=== PATIENT | female | born 1965 | race Caucasian/White ===

== ENCOUNTER 2019-01-26 14:06 | Outpatient (CLI) | payer BC, SELFPAY ==
--- NOTE | 2019-01-26 15:00 | DI.RAD_ITS ---
SYMPTOMS/DIAGNOSIS: LEFT SHOULDER PAIN, NUMBNESS, TINGLING X 3 DAYS, SHOULDER WAS FROZEN FOR ABOUT 5 HOURS ON INITIAL ONSET LEFT SHOULDER: Multiple views. There are mild degenerative changes at the acromioclavicular joint. The glenohumeral joint is well maintained. The bones are intact and normally mineralized. The soft tissues are unremarkable. IMPRESSION: Mild degenerative changes of the left shoulder.
== END 2019-01-26 14:26 ==
DX: M25.512 Pain in left shoulder (principal); R20.0 Anesthesia of skin; R20.2 Paresthesia of skin; M19.012 Primary osteoarthritis, left shoulder
CPT/HCPCS: 73030

== ENCOUNTER 2020-04-13 01:22 | Outpatient (CLI) | payer BC, SELFPAY ==
[2020-04-13 12:54] LABS: ALT 51 U/L (14-59); AST 29 U/L (15-37); Albumin 3.3 g/dL (3.4-5.0); Alkaline Phosphatase 76 U/L (46-116); Anion Gap 11.1 mmol/L (3-11); BUN 16 mg/dL (7-18); Bilirubin, Total 0.5 mg/dL (0.2-1.0); CO2 24.9 mmol/L (21.0-32.0); CREATININE 0.94 mg/dL (0.55-1.02); Calcium 9.2 mg/dL (8.5-10.1); Calculated LDL 97 mg/dL (<100); Chloride 102 mmol/L (98-107); Cholesterol 151 mg/dL (<200); Glucose 103 mg/dL (74-106); HDL Cholesterol 29 mg/dL (40-60); Sodium 138 mmol/L (136-145); TSH (W/Ref FT4) 2.73 uIU/mL (0.36-3.74); Total Protein 7.2 g/dL (6.4-8.2); Triglyceride 126 mg/dL (<150)
[2020-04-16 06:13] LABS: Vitamin D 25 Total 18.5 ng/ml (30-100)
== END 2020-04-13 01:42 ==
DX: E03.9 Hypothyroidism, unspecified (principal); R60.0 Localized edema; Z00.00 Encounter for general adult medical examination without abnormal findings; G47.00 Insomnia, unspecified
CPT/HCPCS: 36415; 80053; 80061; 82306; 84443

== ENCOUNTER 2020-06-25 09:30 | Outpatient (REF) | payer BC, SELFPAY ==
--- NOTE | 2020-06-25 08:00 | PAPFT_PTH ---
PATIENT: Emily Hall LOC: [facility] U#:[id number] AGE/SX: 54/F ROOM: RE06/25/[address]: Tammy Helton APRN : 1965 BED: DIS: 06/25/2020 SPEC #: [id number] RECD: 06/25/20 13:08 STATUS: NAVDEEP REQ #: [id number] POPPY: 06/25/20 08:[address]: Tammy Helton DEPT: [facility] Cytology RECD BY: Camryn Bonilla Tissues: 1 - CX/ENDOCX FOR PAP SMEARS Procedures: PAP THIN PREP/UVM Screening HPV DNA PROBE Comments: [id number]
== END 2020-06-25 09:50 ==
LOC: LBN 09:30
DX: Z12.4 Encounter for screening for malignant neoplasm of cervix (principal); R87.810 Cervical high risk human papillomavirus (HPV) DNA test positive
CPT/HCPCS: 88142; 87624

== ENCOUNTER 2020-07-13 03:18 | Outpatient (CLI) | payer BC, SELFPAY ==
--- NOTE | 2020-07-13 07:00 | DI.MAMMO_ITS ---
EXAM: MAMMO SCREENING CLINICAL HISTORY: screening,Z12.39 TECHNIQUE: Mammograms were interpreted according to the usual protocol including computer analysis w [employer] CAD system, tomosynthesis and C-view imaging. COMPARISON: 2014 FINDINGS: The breasts are composed of mainly fatty density , Breast Density category A. No suspicious masses or suspicious microcalcifications are seen. No skin thickening or abnormal axillary lymph nodes are seen. There has been no significant change from prior exams. IMPRESSION: BI-RADS Category 1, Negative mammogram Yearly screening mammography is recommended. Breast Density - Category A, fatty density. A negative radiographic report should not delay biopsy if a dominant or clinically suspicious mass is present. Up to ten percent of cancers are not identified on mammography. A negative report may reinforce clinical impression. Adenosis and dense breasts may obscure an underlying neoplasm. False positive reports average 6 to 10%. Patient will receive a letter notifying them of these results.
== END 2020-07-13 03:38 ==
DX: Z12.31 Encounter for screening mammogram for malignant neoplasm of breast (principal)
CPT/HCPCS: 77063; 77067

== ENCOUNTER 2021-08-05 01:40 | Outpatient (CLI) | payer BC, SELFPAY ==
--- NOTE | 2021-08-05 07:15 | DI.US_ITS ---
Exam(s) US RENAL EXAM: US RENAL CLINICAL HISTORY: left flank pain, r/o calculi,R10.9 TECHNIQUE: Ultrasound of both kidneys performed using standard protocol. COMPARISON: No exams were available for comparison FINDINGS: RIGHT KIDNEY: Measures 11.7 cm in length. No cysts evident. Normal cortical thickness and corticomedullary differen tiation .No solid masses No intrarenal calculi nor hydronephrosis. LEFT KIDNEY: Measures 11.3 cm in length. No cysts evident. Normal cortical thickness and corticomedullary differe ntiaion. No solids masses. No intrarenal calculi nor hydonephrosis. URINARY BLADDER: Prevoid volume is 48 cc Postvoid volume is patient apparently did not feel need to void No evidence of bladder mass nor diverticuli. Ureterovesical jets: Both identified and appear symmetrical IMPRESSION: 1. No significant ultrasound findings in the kidneys. 2. No obvious abnormality in the visualized urinary bladder which was not very full, containing only 48 cc. DATA REPOSITORY:
--- NOTE | 2021-08-05 07:15 | DI.MAMMO_ITS ---
Exam(s) MAMMO SCREENING EXAM: MAMMO SCREENING CLINICAL HISTORY: screening,Z12.39. TECHNIQUE: Bilateral full field digital CC and MLO mammographic images were obtained with 3D tomosyn thesis and utilizing computer aided detection (CAD). COMPARISON: Prior mammograms dating back to 2014, the most recent being June 2020. FINDINGS: There are no new significant radiograph findings in left breast. In the right breast there is well-defined noncalcified nodule measuring 7 by 6 millimeters and is loc ated 8 cm in from the nipple, slightly medial of center. This is unchanged from prior studies. There are no new spiculated masses nor malignant appearing microcalcification groups. There is no significant architectural distortion nor skin thickening-retraction. IMPRESSION: No radiographic evidence of malignancy. Stable benign findings. BI-RADS Category 2 - Benign Findings Breast Density - Category B - Scattered areas of fibroglandular density Breast density Category C or D implies that the patient has dense breast tissue. Dense breast tissue can make it harder to find cancer on a mammogram. Dense breast tissue is also associated with an incr eased risk of breast cancer. This information about the result of the mammogram report was provided to the patient to raise their awareness. Use this report when you speak with the patient about their risks for breast cancer, which includes their family history. At that time, you may recommend additional screening tests (Ultrasoun d or MRI) as these tests may add significant information. A negative radiographic report should not delay biopsy if a dominant or clinically suspicious mass is present. Up to ten percent of cancers are not identified on mammography. A negative report may reinforce clinical impression. Adenosis and dense breasts may obscure an underlying neoplasm. False positive reports average 6 to 10%. Patient will receive a letter notifying them of these results.
== END 2021-08-05 02:00 ==
DX: Z12.31 Encounter for screening mammogram for malignant neoplasm of breast (principal); R10.32 Left lower quadrant pain
CPT/HCPCS: 76770; 77063; 77067

== ENCOUNTER 2021-08-06 15:58 | Outpatient (REF) | payer BC, SELFPAY ==
--- NOTE | 2021-08-06 14:50 | PAPFT_PTH ---
PATIENT: Emily Hall LOC: [facility] U#:[id number] AGE/SX: 56/F ROOM: RE08/06/[address]: Kerry Mcrae DO : 1965 BED: DIS: 08/06/2021 SPEC #: [id number] RECD: 08/06/21 18:29 STATUS: NAVDEEP REQ #: [id number] POPPY: 08/06/21 14:[address]: Kerry Mcrae DEPT: [facility] Cytology RECD BY: Camryn Bonilla ENTERED: 08/06/21 18:29 SP TYPE: PAPFT OTHR DR: Tammy Helton APRN Tissues: 1 - CX/ENDOCX FOR PAP SMEARS Procedures: PAP THIN PREP/UVM Screening HPV DNA PROBE Comments: [id number] (HPV 16 & 18/45)
== END 2021-08-06 15:59 | disposition home or self-care (01) ==
LOC: LBN 15:58
PROVIDERS: Visit Provider Obstetrics & Gynecology
DX: Z12.4 Encounter for screening for malignant neoplasm of cervix (principal); Z11.51 Encounter for screening for human papillomavirus (HPV); R87.810 Cervical high risk human papillomavirus (HPV) DNA test positive
CPT/HCPCS: 88142; 87624

== ENCOUNTER 2021-09-19 14:49 | Outpatient (REF) | payer BC, SELFPAY ==
--- NOTE | 2021-09-19 14:25 | ENDO_PTH ---
PATIENT: Emily Hall LOC: N U#:[id number] AGE/SX: 56/F ROOM: RE09/19/[address]: Kerry Mcrae DO : 1965 BED: DIS: 09/19/2021 SPEC #: [id number] RECD: 09/19/21 17:04 STATUS: NAVDEEP REQ #: [id number] POPPY: 09/19/21 14:[address]: Kerry Mcrae DEPT: Surgical Specimen RECD BY: Camryn Bonilla ENTERED: 09/19/21 17:05 SP TYPE: Endo OTHR DR: Tammy Helton APRN Tissues: 1 - ENDOCERVICAL BX/CURRETTE Procedures: GROSS AND MICRO LEVEL 4 Comments: [id number]
== END 2021-09-19 14:50 | disposition home or self-care (01) ==
LOC: LBN 14:49
PROVIDERS: Visit Provider Obstetrics & Gynecology
DX: R87.810 Cervical high risk human papillomavirus (HPV) DNA test positive (principal)
CPT/HCPCS: 88305

== ENCOUNTER 2022-01-10 02:00 | Outpatient (CLI) | payer BC, SELFPAY ==
[2022-01-10 08:21] LABS: ALT 51 U/L (14-59); AST 31 U/L (15-37); Albumin 3.5 g/dL (3.4-5.0); Alkaline Phosphatase 94 U/L (46-116); Anion Gap 3.7 mmol/L (3-11); BUN 13 mg/dL (7-18); Bilirubin, Total 0.6 mg/dL (0.2-1.0); CO2 29.3 mmol/L (21.0-32.0); Calcium 8.7 mg/dL (8.5-10.1); Chloride 103 mmol/L (98-107); Estimated GFR 57.15 (mL/min/1.73m2); Glucose 143 mg/dL (74-106); Potassium 4.3 mmol/L (3.5-5.1); Sodium 136 mmol/L (136-145); Total Protein 7.4 g/dL (6.4-8.2)
== END 2022-01-10 02:01 | disposition home or self-care (01) ==
LOC: LBO 02:00
DX: E55.9 Vitamin D deficiency, unspecified (principal); R63.0 Anorexia; R03.0 Elevated blood-pressure reading, without diagnosis of hypertension
CPT/HCPCS: 36415; 80053; 82306

== ENCOUNTER 2022-07-15 10:46 | Emergency (ER) | payer OTHER, SELFPAY ==
[2022-07-15 10:48] VITALS: BP 125/71; PULSE 93; RESP 18; TEMP 36.8; O2SAT 93
--- NOTE | 2022-07-15 11:15 | DI.RAD_ITS ---
Exam(s) XR ANKLE RT COMPLETE EXAM: XR ANKLE RT COMPLETE CLINICAL HISTORY: twisted ankle while walking, r/o fx. TECHNIQUE: 2D digital imaging was performed. COMPARISON: No exams were available for comparison FINDINGS: 3 views There is prominent soft tissue swelling laterally but no evidence of fracture or widening of the ankl e mortise. Talar dome unremarkable. No obvious degenerative changes. Small inferior calcaneal spur noted. IMPRESSION: No fracture evident. Prominent soft tissue swelling laterally. DATA REPOSITORY: RADIATION DOSE DELIVERED:
--- NOTE | 2022-07-15 11:15 | DI.RAD_ITS ---
Exam(s) XR FOOT RT COMPLETE EXAM: XR FOOT RT COMPLETE CLINICAL HISTORY: twisted R ankle, pain dorsolateral foot, r/o fx. TECHNIQUE: 2D digital imaging was performed. COMPARISON: CR RIGHT FOOT COMPLETE from 01/20/2018 FINDINGS: 3 views No evidence of acute fracture or diastasis of the Lisfranc joint. Bipartite medial sesamoid subjacen t to the great toe metatarsal head noted, unchanged. There are degenerative changes at the articulations between the bases of the 2nd 3rd metatarsals and the acute informs. Metatarsophalangeal joint of the great toe appears relatively unremarkable. Acce ssory ossicle on the medial aspect foot noted adjacent to the navicular tuberosity, unchanged. IMPRESSION: Degenerative changes at the tarsometatarsal joints. No widening of the Lisfranc joint. DATA REPOSITORY: RADIATION DOSE DELIVERED:
--- NOTE | 2022-07-15 11:51 | ED.GENADUL_ITS ---
Discharge Plan Disposition Patient Disposition: HOME Condition: Stable Discharge Details Clinical Impression: Right ankle strain Primary Care Provider: Tammy Helton ED Provider: Jailyn Hodge Home Meds and New Rx's Prescriptions: Continued sertraline 50 mg tablet 50 mg PO DAILY Qty: 90 0RF naproxen sodium 220 MG tablet 2 tab PO DAILY PRN Label Comments: hydrochlorothiazide 25 mg tablet 25 mg PO QAM Qty: 90 3RF cholecalciferol (vitamin D3) 125 mcg (5,000 unit) capsule 125 mcg PO DAILY Qty: 90 4RF alprazolam 0.25 mg tablet See Rx Instructions PO TID PRN (Reason: anxiety) Qty: 90 0RF Rx Instructions: 1 to 2 tabs orally three times a day PRN; Centrum Silver Women 1 EACH tablet 1 ea PO DAILY Discharge Instructions Instructions: Ankle Sprain (ED) Additional Instructions: Your x-ray today showed arthritis but no evidence of acute fracture or dislocation. Rest, ice, and elevate the affected area as much as possible. Alternate tylenol and motrin as needed and directed for pain. Follow-up with your primary care doctor in 1 week. Return to the emergency department with any worsening or new concerning symptoms. Referrals: Yaron Jarrett MD [ [facility] STAFF PHYSICIAN] - Discharge Data Discharge Physician: Jailyn Hodge Medical Decision Making 57-year-old female presents with right ankle pain and swelling after twisting her ankle while walking this morning. She has moderate edema and tenderness palpation to right lateral malleolus. There is no obvious deformity. She is neurovascularly intact. Patient referred for x-rays of right foot and ankle which no degenerative changes but no obvious fracture or dislocation. Will order ankle stirrup splint and crutches. Advised on the importance of RICE, alternating Tylenol and Motrin. Given orthopedic follow-up information if needed. Advised to follow up with the primary care doctor for re-evaluation. Usual and customary return precautions given prior to discharge. Medical Records Medical records reviewed: Yes I reviewed the patient's medical records. Imaging Data Radiologic Study: Radiologist's impression: XR FOOT RT COMPLETE CLINICAL HISTORY: ? twisted R ankle, pain dorsolateral foot, r/o fx. ? TECHNIQUE:? 2D digital imaging was performed. COMPARISON:? CR RIGHT FOOT COMPLETE from 01/20/2018 FINDINGS: 3 views No evidence of acute fracture or diastasis of the Lisfranc joint.? Bipartite medial sesamoid subjacent to the great toe metatarsal head noted, unchanged. There are degenerative changes at the articulations between the bases of the 2nd 3rd metatarsals and the acute informs.? Metatarsophalangeal joint of the great toe appears relatively unremarkable.? Accessory ossicle on the medial aspect foot noted adjacent to the navicular tuberosity, unchanged. IMPRESSION: Degenerative changes at the tarsometatarsal joints.? No widening of the Lisfranc joint. XR ANKLE RT COMPLETE CLINICAL HISTORY: ? twisted ankle while walking, r/o fx. ? TECHNIQUE:? 2D digital imaging was performed. COMPARISON:? No exams were available for comparison FINDINGS: 3 views There is prominent soft tissue swelling laterally but no evidence of fracture or widening of the ankle mortise.? Talar dome unremarkable.? No obvious degenerative changes.? Small inferior calcaneal spur noted. IMPRESSION: No fracture evident.? Prominent soft tissue swelling laterally. HPI General Mode of arrival: ambulatory . Date/Time Provider Initiated Documentation: 07/15/22 10:58 . Limitations to Documentation: no limitations . Information obtained by: patient . HPI Narrative: Patient is a 57-year-old female who presents with right ankle pain after twisting her ankle while walking and fell into a divot in the ground this morning. She has not taken any medication for pain. She denies any injury to her right knee or right proximal leg. Related Data Home Medications Medication Instructions Recorded Confirmed naproxen sodium 220 mg tablet 2 tab PO DAILY PRN 11/15/14 06/11/22 multivit with 1 ea PO DAILY 02/04/16 07/15/22 qacvegpj-giqz-AB-lutein 8 mg iron-400 mcg-300 mcg tablet (Centrum Silver Women) hydrochlorothiazide 25 mg tablet 25 mg PO QAM #90 tabs 06/11/21 07/15/22 cholecalciferol (vitamin D3) 125 125 mcg PO DAILY #90 caps 01/13/22 07/15/22 mcg (5,000 unit) capsule sertraline 50 mg tablet 50 mg PO DAILY #90 tabs 05/05/22 07/15/22 alprazolam 0.25 mg tablet See Rx Instructions PO TID PRN 05/08/22 07/15/22 anxiety #90 tabs Previous Rx's Medication Instructions Recorded hydrochlorothiazide 25 mg tablet 25 mg PO QAM #90 tabs 06/11/21 cholecalciferol (vitamin D3) 125 125 mcg PO DAILY #90 caps 01/13/22 mcg (5,000 unit) capsule sertraline 50 mg tablet 50 mg PO DAILY #90 tabs 05/05/22 alprazolam 0.25 mg tablet See Rx Instructions PO TID PRN 05/08/22 anxiety #90 tabs Allergies Allergy/AdvReac Type Severity Reaction Status Date / Time [facility] Allergy Intermediate Hives, Verified 07/15/22 10:53 Itchy/Runny eyes Animal Dander Allergy Uncoded 07/15/22 10:53 General Stated Complaint: Orthopedic NARINDER: 3 Review of Systems All systems reviewed & are unremarkable except as noted in HPI and below Constitutional Constitutional: Reports as per HPI, Denies chills and Denies fever(s) Eyes Eyes: Denies blurry vision ENT Ears, Nose, Mouth, and Throat: Denies dizziness, Denies sore throat and Denies throat swelling Cardiovascular Cardiovascular: Denies chest pain and Denies dyspnea Respiratory Respiratory: Denies cough and Denies dyspnea Gastrointestinal Gastrointestinal: Denies abdominal pain, Denies diarrhea and Denies vomiting Genitourinary Genitourinary: Denies hematuria and Denies dysuria Musculoskeletal Musculoskeletal: Denies back pain and Denies numbness Comments: R ankle pain Integumentary/Breasts Skin/Breast: Denies lesions and Denies rash Neurologic Neurologic: Denies dizziness, Denies localized weakness and Denies numbness Allergic/Immunologic Allergic/Immunologic: Denies throat swelling PFSH All Active Problems (Updated 07/15/22 @ 12:31 by Jailyn Hodge DO) Right ankle strain (Acute) Anxiety (Chronic) Essential hypertension (Acute) Morbid obesity with BMI of 45.0-49.9, adult (Acute) Low back pain (Chronic) HPV (human papilloma virus) infection (Chronic) HPV + 2019 & again 2020 (PAP Neg). Colposcopy Dr. Mcrae early 2021. Vitamin D deficiency (Acute) Smoker (Chronic) Left shoulder pain (Chronic) Colon cancer screening (Acute) Medical History (Updated 07/15/22 @ 12:31 by Jailyn Hodge DO) COVID-19 07/2021, uri-resolved Fluid retention in legs Left flank pain Plantar fasciitis, right (01/20/18) Posterior tibial tendinitis, right leg (01/20/18) Surgical History Abdominal hysterectomy KATIE; B/L OOPHORECTOMY 1992 Cervix remains intact Cholecystectomy (~1992) , Ectopic (~1987) Family History Mother Diabetes Personal history of malignant neoplasm BREAST Thyroid disease Grandfather Essential hypertension Heart disease Grandmother Diabetes Personal history of malignant neoplasm BREAST MATERNAL FAMILY HX CAD (coronary artery disease) Social History Smoking/Tobacco Use Status: Current every day Tobacco Type: cigarettes Tobacco: How many years used: 40 Quit status: considering quitting Second Hand Exposure: Yes Smoking risk assessment performed?: Yes Alcohol Intake: current Alcohol Intake frequency: holidays/special occasions only Drug use: Never Substance use type: does not use Caregiver/Support person: No Household members: spouse Housing: house Communication Needs: None Do you need help understanding health information?: Never Pets and animals: Yes Pets and animals: dog(s) Sexually active: Yes Do you think of yourself as: straight/heterosexual Current gender identity: female What is your relationship status?: How often do you talk on the phone with friends or family?: three or more times per week How often do you get together with friends or relatives?: once per week How often do you attend hoahaoism or lutheran services?: decline to answer Do you belong to any clubs or organized social groups?: no Panel score (0-1 are the most socially isolated patients): 2 What type of physical activity do you participate in: walking Duration: 30-45 minutes/day Frequency: 5-6 times per week Laly/Religious: Caodaism Special laly needs: No Seatbelt use: always Helmet use: Yes Helmet use: always Drive intox or ride w/intox 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 Do you feel safe at home: Yes Do you feel safe in your relationship?: Yes Exam Const General: cooperative and no acute distress Orientation: alert, awake and oriented x3 HENMT Head: normal to inspection Mouth: oral mucosae normal Eyes General: appearance normal, both eyes and all related structures Neck Neck: normal visual inspection Resp Effort & Inspection: normal respiratory effort and able to speak in complete sentences Cardio Rate: regular rate Skin General skin exam: no rashes or lesions noted Neuro General: patient alert, patient awake and patient oriented x3 Motor: muscle tone normal throughout Extrem Ankle/foot/toe images: 1. Moderate edema and tenderness to palpation overlying Right lateral malleolus. There is also tenderness to palpation overlying right dorsal lateral foot. There is mild tenderness to palpation right medial malleolus. There is no tenderness palpation to right proximal leg. There is no obvious deformity. Right DP/PT pulses intact. Psych Appearance: grossly normal Affect: normal affect Course Vital Signs Vital signs: Vital Signs Temperature 98.2 F 07/15/22 10:48 Pulse 93 H 07/15/22 10:48 Respiratory Rate 18 07/15/22 10:48 Blood Pressure 125/71 07/15/22 10:48 Pulse Oximetry 93 07/15/22 10:48 Temperature 98.2 F 07/15/22 10:48 Pulse 93 H 07/15/22 10:48 Respiratory Rate 18 07/15/22 10:48 Respiratory Effort Non-Labored 07/15/22 10:55 Blood Pressure 125/71 07/15/22 10:48 Blood Pressure Position Sitting 07/15/22 10:48 Pulse Oximetry 93 07/15/22 10:48 Oxygen Delivery Method Room Air 07/15/22 10:48 Oxygen Flow Rate 0 07/15/22 10:48 Pain Level 6 07/15/22 10:48 PAWSS Have you Been Recently Intoxicated or Drunk Within the Last 30 days?: Yes Have you Ever Experienced Previous Episodes of Alcohol Withdrawal?: No Have you ever Experienced Withdrawal Seizures?: No Have you ever Experienced Delirium Tremens(DT)s?: No Have you ever undergone Alcohol Rehabilitation Treatment (i.e, inpt ot outpatient treatment programs)?: No Have you ever Experienced Blackouts?: No Have you ever Combined Alcohol with other Downers within the last 90 days?: No Have you ever Combined Alcohol with any other Substance of Abuse during the last 90 days?: No Result: 1
[2022-07-15] MEDS: Ibuprofen 600 MG TAB PO (12:10)
== END 2022-07-15 13:05 | disposition home or self-care (01) ==
PROVIDERS: Emergency Provider Physician Assistant
DX: S96.911A Strain of unspecified muscle and tendon at ankle and foot level, right foot, initial encounter (principal); X50.1XXA Overexertion from prolonged static or awkward postures, initial encounter; W18.30XA Fall on same level, unspecified, initial encounter; Y93.01 Activity, walking, marching and hiking
CPT/HCPCS: 99284; 73610; 73630; 99282

== ENCOUNTER 2022-07-23 09:15 | Outpatient (CLI) | payer OTHER, SELFPAY ==
--- NOTE | 2022-07-23 09:00 | DI.RAD_ITS ---
Exam(s) XR FOOT RT COMPLETE EXAM: XR FOOT RT COMPLETE CLINICAL HISTORY: right lateral foot pain. TECHNIQUE: 2D digital imaging was performed. Three views. COMPARISON: CR XR FOOT RT COMPLETE from 07/15/2022 FINDINGS: BONES: No acute fracture is present. No bony destructive lesion is seen. Small heel spur. JOINTS: No dislocation present. Degenerative changes mid tarsal region. SOFT TISSUE: No dorsal soft tissue swelling. IMPRESSION: No acute bony abnormality. DATA REPOSITORY: RADIATION DOSE DELIVERED:
--- NOTE | 2022-07-23 09:00 | DI.RAD_ITS ---
Exam(s) XR ANKLE RT COMPLETE EXAM: XR ANKLE RT COMPLETE CLINICAL HISTORY: right lateral ankle pain. TECHNIQUE: 2D digital imaging was performed. Three views. COMPARISON: CR XR ANKLE RT COMPLETE from 07/15/2022 FINDINGS: BONES: No acute fracture is present. No bony destructive lesion is seen. Small heel spur. JOINTS: The ankle mortise is normally aligned. SOFT TISSUE: Normal marked soft tissue swelling greatest around lateral malleolus. IMPRESSION: Soft tissue swelling. DATA REPOSITORY: RADIATION DOSE DELIVERED:
== END 2022-07-23 09:16 | disposition home or self-care (01) ==
LOC: DIORS 09:16
PROVIDERS: PCP Nurse Practitioner Family; Referring Provider Family Medicine; Visit Provider Physician Assistant
DX: M79.671 Pain in right foot (principal); R22.41 Localized swelling, mass and lump, right lower limb
CPT/HCPCS: 73610; 73630

== ENCOUNTER 2022-09-04 14:10 | Outpatient (REF) | payer OTHER, SELFPAY ==
--- NOTE | 2022-09-04 13:40 | PAPFT_PTH ---
PATIENT: Emily Hall LOC: [facility] U#:[id number] AGE/SX: 57/F ROOM: RE09/04/[address]: Kerry Mcrae DO : 1965 BED: DIS: 09/04/2022 SPEC #: [id number] RECD: 09/04/22 16:58 STATUS: NAVDEEP REQ #: [id number] POPPY: 09/04/22 13:[address]: Kerry Mcrae DEPT: [facility] Cytology RECD BY: Camryn Bonilla ENTERED: 09/04/22 16:58 SP TYPE: PAPFT OTHR DR: Ministerio Bah DNP Tissues: 1 - CX/ENDOCX FOR PAP SMEARS Procedures: PAP THIN PREP/UVM Screening HPV DNA PROBE Comments: [id number]
== END 2022-09-04 14:11 | disposition home or self-care (01) ==
LOC: LBN 14:10
PROVIDERS: PCP Nurse Practitioner Family; Visit Provider Obstetrics & Gynecology
DX: Z12.4 Encounter for screening for malignant neoplasm of cervix (principal); Z11.51 Encounter for screening for human papillomavirus (HPV); R87.610 Atypical squamous cells of undetermined significance on cytologic smear of cervix (ASC-US)
CPT/HCPCS: 88142; 87624

== ENCOUNTER → 2022-09-09 00:48 | Outpatient (CLI) | payer OTHER, SELFPAY ==
--- NOTE | 2022-09-09 07:30 | DI.MRI_ITS ---
Exam(s) MR LOWER JOINT RT WO EXAM: MR LOWER JOINT RT WO CLINICAL HISTORY: R ANKLE PERONEAL TENDON injury, strain, s86.309a,s96.911a TECHNIQUE: Multiplanar multisequence MRI was performed without intravenous contrast. COMPARISON: No exams were available for comparison FINDINGS: SKIN: No evidence of ulcer nor subcutaneous tract. BONES/JOINTS: There is a small ankle joint-tibiotalar joint effusion. There is bone edema at the mid aspect of the talus above this sinus tarsi. No obvious fracture line evident in the talus on T1 lauren ges. There is bone edema in both malleoli as well as in the lateral aspect of the talar dome. No buckner barticular cyst at this level and no osteochondral defect. The ankle mortise is maintained. There is no evidence of para-articular ganglion.There is no evidence of osseous tarsal coalition. 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 Anterior talofibular ligament exhibits heterogeneous signal consistent with partial tearing. Po sterior talofibular ligament appears intact. Calcaneofibular ligament somewhat heterogeneous. On th e medial aspect of the ankle there is some abnormal signal in the deltoid ligament deep fibers consis tent with element of tearing. Lisfranc ligament: Heterogeneous appearance consistent with partial tearing SINUS TARSI: There is effacement of the normal fat signal in this space. Interosseous ligament is in tact. There is no evidence of sinus tarsi ganglion cyst. MUSCULOTENDINOUS STRUCTURES: Achilles tendon: Focal partial cystic degenerative tearing noted in the anterior inferior aspect just above the insertion site. No full-thickness tear. No chronic thickening. Plantar fascia: Unremarkable. No evidence of tear, abnormal thickening, nor abnormal nodularity. Anterior Extensor tendons: Unremarkable. Medial Tendons: Posterior Tibialis: Unremarkable. No tear or tenosynovitis evident. Flexor Digitorum longus: Unremarkable. No tear or tenosynovitis evident. Flexor Hallicus longus: Unremarkable. No tear or tenosynovitis evident. Lateral Tendons: Peroneus longus: Unremarkable. No tear nor tenosynovitis evident. Peroneus brevis:Unremarkable. No tear nor tenosynovitis evident. SOFT TISSUES: Unremarkable. OTHER FINDINGS: None. IMPRESSION: 1. There is evidence of tearing of the deep fibers of the deltoid ligament as well as partial tearing of the anterior talofibular ligament and sprain signal within the anterior posterior tibiofibular li gaments. There also appears to be probable partial tearing of the main Lisfranc ligament. 2. Cystic-type partial tear of the distal Achilles tendon just above the calcaneus. No full-thicknes s tear of the Achilles evident. 3. There is advanced degenerative change in the tarsometatarsal joints, most prominent at the articul ation between the base of the 2nd metatarsal and the middle cuneiform. 4. Multilevel bone edema also evident in the malleoli, talar dome, and mid aspect of talus. No oste ochondral defects. DATA REPOSITORY:
--- NOTE | 2022-09-09 17:19 | DI.VRAD_ITS ---
PROCEDURE INFORMATION: Exam: MR Right Lower Extremity Joint Without Contrast; Ankle Exam date and time: 09/09/2022 2:03 PM Age: 57 years old Clinical indication: Other: R ankle peroneal tendon injury, strain, TECHNIQUE: Imaging protocol: Magnetic resonance imaging of the Right lower extremity without contrast. Exam focused on the ankle. 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 Reactive edema in the neck of the talus. No fracture line identified. Mild to moderate chondromalacia in the lateral ankle mortise. Mild edema in the medial dome of the talus. Joint spaces: Small tibiotalar joint effusion. LIGAMENTS: Distal tibiofibular syndesmosis: Heterogeneous appearance of the anterior and posterior tibiofibular ligaments consistent with partial tearing. Anterior talofibular ligament: Heterogeneous appearance of the anterior talofibular ligament consistent with partial tearing. Posterior talofibular ligament: Unremarkable. No tear. Calcaneofibular ligament: Unremarkable. No tear. Deltoid ligament complex: Marked heterogeneous appearance of the deep fibers of the deltoid ligament consistent with a complex tearing, likely full-thickness. Lisfranc ligament: Heterogeneous appearance of the Lisfranc ligament consistent with partial tearing. TENDONS: Flexor tendons of foot: Unremarkable as visualized. Tibialis posterior tendon: Unremarkable as visualized. Peroneal tendons: Soft tissue thickening surrounding the peroneal tendons suspicious for complex tenosynovitis. Extensor tendons of foot: Unremarkable as visualized. Tibialis anterior tendon: Unremarkable as visualized. Achilles tendon: Small collection of fluid deep fibers of the distal Achilles tendon lateral to midline best seen axial series 5001, image 23. This suggests focal partial tearing. Tarsal canal (Sinus tarsi): Unremarkable. Normal signal of the fat. Tarsal tunnel: Unremarkable. Muscles: Unremarkable. Soft tissues: Unremarkable. Plantar fascia: Plantar fascia is unremarkable. IMPRESSION: 1. Complex, probable full-thickness tear deep fibers deltoid ligament 2. Partial tearing anterior talofibular ligament and anterior and posterior tibiofibular ligaments 3. Peroneal tenosynovitis 4. Advanced degenerative arthritis in the TMT joints, especially the 2nd TMT joint 5. Probable partial tearing of the Lisfranc ligament 6. Degenerative arthritis in the ankle mortise with mild to moderate chondromalacia medially 6. Slight partial tearing deep fibers of the Achilles tendon Dictated and Authenticated by: Abby Mendiola MD. Ordering:TRACI Coronado MD
== END ==
PROVIDERS: PCP Nurse Practitioner Family; Visit Provider Student in an Organized Health Care Education/Training Program
DX: S86.301A Unspecified injury of muscle(s) and tendon(s) of peroneal muscle group at lower leg level, right leg, initial encounter (principal); S93.421A Sprain of deltoid ligament of right ankle, initial encounter; S93.491A Sprain of other ligament of right ankle, initial encounter; S93.431A Sprain of tibiofibular ligament of right ankle, initial encounter; S86.011A Strain of right Achilles tendon, initial encounter; M19.071 Primary osteoarthritis, right ankle and foot; X58.XXXA Exposure to other specified factors, initial encounter
CPT/HCPCS: 73721

== ENCOUNTER 2022-09-24 02:46 | Outpatient (CLI) | payer OTHER, SELFPAY ==
--- NOTE | 2022-09-24 15:42 | DI.MAMMO_ITS ---
Exam(s) MAMMO SCREENING EXAM: MAMMO SCREENING CLINICAL HISTORY: screening,z12.39 TECHNIQUE: Mammograms were interpreted according to the usual protocol including computer analysis w [address] CAD system, tomosynthesis and C-view imaging. COMPARISON: 2014 through 2020 FINDINGS: The breasts are composed of mainly fatty density , Breast Density category A. No suspicious masses or suspicious microcalcifications are seen. No skin thickening or abnormal axillary lymph nodes are seen. There has been no significant change from prior exams. IMPRESSION: BI-RADS Category 1, Negative mammogram Yearly screening mammography is recommended. Breast Density - Category A, fatty density. A negative radiographic report should not delay biopsy if a dominant or clinically suspicious mass is present. Up to ten percent of cancers are not identified on mammography. A negative report may reinforce clinical impression. Adenosis and dense breasts may obscure an underlying neoplasm. False positive reports average 6 to 10%. Patient will receive a letter notifying them of these results.
== END 2022-09-24 03:06 ==
PROVIDERS: PCP Nurse Practitioner Family; Visit Provider Nurse Practitioner Family
DX: Z12.31 Encounter for screening mammogram for malignant neoplasm of breast (principal)
CPT/HCPCS: 77063; 77067

== ENCOUNTER 2022-09-30 13:09 | Outpatient (REF) | payer OTHER, SELFPAY ==
--- NOTE | 2022-09-30 11:30 | ENDO_PTH ---
PATIENT: Emily Hall LOC: [facility] U#:[id number] AGE/SX: 57/F ROOM: RE09/30/[address]: Kerry Mcrae DO : 1965 BED: DIS: 09/30/2022 SPEC #: [id number] RECD: 09/30/22 13:10 STATUS: NAVDEEP REQ #: [id number] POPPY: 09/30/22 11:[address]: Kerry Mcrae DEPT: Surgical Specimen RECD BY: Camryn Bonilla ENTERED: 09/30/22 13:10 SP TYPE: Endo OTHR DR: Ministerio Bah DNP Tissues: 1 - ENDOCERVICAL BX/CURRETTE Procedures: GROSS AND MICRO LEVEL 4 Comments: [id number]
== END 2022-09-30 13:10 | disposition home or self-care (01) ==
LOC: LBN 13:09
PROVIDERS: PCP Nurse Practitioner Family; Visit Provider Obstetrics & Gynecology
DX: N89.8 Other specified noninflammatory disorders of vagina (principal)
CPT/HCPCS: 88305

== ENCOUNTER 2022-11-06 02:07 | Outpatient (CLI) | payer OTHER, SELFPAY ==
[2022-11-06 13:24] LABS: ALT 24 U/L (14-59); AST 14 U/L (15-37); Albumin 3.5 g/dL (3.4-5.0); Alkaline Phosphatase 94 U/L (46-116); Anion Gap 7.5 mmol/L (3-11); BUN 12 mg/dL (7-18); Bilirubin, Total 0.7 mg/dL (0.2-1.0); CO2 29.5 mmol/L (21.0-32.0); Calcium 9.7 mg/dL (8.5-10.1); Chloride 100 mmol/L (98-107); Glucose 105 mg/dL (74-106); Potassium 3.8 mmol/L (3.5-5.1); Sodium 137 mmol/L (136-145); Total Protein 8.2 g/dL (6.4-8.2)
== END 2022-11-06 02:08 | disposition home or self-care (01) ==
LOC: LBO 02:07
PROVIDERS: PCP Nurse Practitioner Family; Visit Provider Nurse Practitioner Family
DX: Z13.1 Encounter for screening for diabetes mellitus (principal)
CPT/HCPCS: 36415; 80053

== ENCOUNTER 2023-02-18 09:14 | Emergency (ER) | payer OTHER, SELFPAY ==
[2023-02-18 09:29] VITALS: BP 123/74; PULSE 89; RESP 16; TEMP 37.1; O2SAT 96
--- NOTE | 2023-02-18 09:30 | DI.CT_ITS ---
Exam(s) CT ABDOMEN PELVIS W EXAM: CT ABDOMEN PELVIS W CLINICAL HISTORY: left lower quad pain, divertic v kidney stone. TECHNIQUE: Imaging Protocol: Axial computed tomography images with coronal and sagittal reformatted images were created and reviewed CONTRAST MATERIAL: Intravenous: Omnipaque 350 Contrast volume:86 mL Oral: No COMPARISON: No exams were available for comparison FINDINGS: ABDOMEN: Lung Bases: Dependent changes. Liver: Enlarged. Moderate to severe hepatic steatosis. No measurable mass. Gallbladder and biliary tract: Status post cholecystectomy. No biliary dilatation. Pancreas: Normal density, no abnormal calcifications or inflammatory process. Spleen: Cyst. Kidneys: Normal size, contour and axis. No radiodense stones or obstructive uropathy. No suspicious m asses seen. Adrenal glands: No masses seen. Abdominal Aorta: Abdominal portion non-dilated. Soft tissues: Unremarkable. PELVIS: Bladder: Nearly empty. No calculi.No focal mass. Bowel: No obstruction. Diverticulosis with diverticulitis of the mid to lower descending colon. St randing in the surrounding fat but no evidence abscess or perforation. Small amount of fluid in the left paracolic gutter. Appendix normal. Peritoneal cavity: Trace amount of fluid in the lower pelvis. No abscess or free air. Bones: Unremarkable for age. Reproductive organs: Status post hysterectomy. Lymph nodes: Unremarkable. Impression: Diverticulitis of the mid to lower descending colon. No perforation or abscess. Enlarged fatty liver. Findings called to Dr. Fitzpatrick of the emergency department. RADIATION DOSE DELIVERED: 1,506.89mGy.cm Total DLP DATA REPOSITORY: All CT scans at this facility are submitted to the National Radiology Data Registry (NRDR) Dose Index Registry (DIR) with the [employer] (ACR). RADIATION OPTIMIZATION: All CT scans at this facility use at least one of these dose optimization te chniques: automated exposure control; mA and/or kV adjustment per patient size (includes targeted exa ms where dose is matched to clinical indication); or iterative reconstruction.
[2023-02-18 09:41] LABS: Bilirubin Small (Negative); Blood Trace-intact (Negative); Clarity Clear (Clear); Glucose Negative (Negative); Ketones Negative (Negative); Leukocyte Esterase Negative (Negative); Nitrite Negative (Negative); Specific Gravity 1.025 (1.005-1.025); Urobilinogen 0.2 mg/dL (Up to 0.2); pH 5.5 (5-8)
--- NOTE | 2023-02-18 09:44 | W.ED.GENAD ---
Discharge Plan Disposition Patient Disposition: Home Discharge Details Clinical Impression: Diverticulitis Primary Care Provider: Ministerio Gardner ED Provider: Jordan Fitzpatrick Home Meds and New Rx's Prescriptions: New amoxicillin-pot clavulanate 875-125 mg tablet 1 tab PO BID 10 Days Qty: 20 0RF No Action acetaminophen [Tylenol] 325 mg capsule 325 mg PO ONCE PRN ibuprofen 200 mg tablet 200 mg PO Q6H PRN hydrochlorothiazide 25 mg tablet 25 mg PO QAM Qty: 90 3RF naproxen sodium 220 MG tablet 2 tab PO DAILY PRN Patient Comments: cholecalciferol (vitamin D3) 125 mcg (5,000 unit) capsule 125 mcg PO DAILY Qty: 90 4RF alprazolam 0.25 mg tablet See Rx Instructions PO TID PRN (Reason: anxiety) Qty: 90 0RF Rx Instructions: 1 to 2 tabs orally three times a day PRN; sertraline 50 mg tablet 50 mg PO DAILY Qty: 90 3RF Centrum Silver Women 1 EACH tablet 1 ea PO DAILY Discharge Instructions Instructions: Diverticulitis (ED) Additional Instructions: Please follow-up with your primary care physician. Please return to the emergency department for any worsening symptoms. Medical Decision Making 57-year-old female presents with left lower quadrant abdominal discomfort over the last day associate with mild nausea no vomiting no diarrhea. Denies urinary symptoms however patient did have positive RBCs in urine as outpatient, no known history of kidney stones, history of hysterectomy, abdomen soft mildly tender in the left lower quadrant without guarding or rebounding. No CVA tenderness. Afebrile nontoxic. Consider likely kidney stone versus diverticulitis versus colitis lower suspicion for bowel obstruction or malignancy. Will obtain basic labs urinalysis CT abdomen pelvis analgesia anti-inflammatory fluids close reassessment 12: 33 patient resting comfortably no acute distress. Evidence of diverticulitis. No evidence of perforation or abscess will dose Augmentin. Home care instructions and return precautions given. HPI General Date/Time Provider Initiated Documentation: 02/18/23 09:18. HPI Narrative: 57-year-old female presents with 1 day of left lower abdominal discomfort intermittent nausea no vomiting or diarrhea. History of hysterectomy. Related Data Home Medications Medication Instructions Recorded Confirmed naproxen sodium 220 mg tablet 2 tab PO DAILY PRN 11/15/14 02/18/23 multivit with 1 ea PO DAILY 02/04/16 02/18/23 uucvgiay-zhyk-YS-lutein 8 mg iron-400 mcg-300 mcg tablet (Centrum Silver Women) cholecalciferol (vitamin D3) 125 125 mcg PO DAILY #90 caps 01/13/22 02/18/23 mcg (5,000 unit) capsule alprazolam 0.25 mg tablet See Rx Instructions PO TID PRN 05/08/22 02/18/23 anxiety #90 tabs acetaminophen 325 mg capsule 325 mg PO ONCE PRN 07/23/22 02/18/23 (Tylenol) ibuprofen 200 mg tablet 200 mg PO Q6H PRN 07/23/22 02/18/23 sertraline 50 mg tablet 50 mg PO DAILY #90 tabs 08/05/22 02/18/23 hydrochlorothiazide 25 mg tablet 25 mg PO QAM #90 tabs 09/08/22 02/18/23 amoxicillin 875 mg-potassium 1 tab PO BID 10 days #20 tabs 02/18/23 clavulanate 125 mg tablet Previous Rx's Medication Instructions Recorded cholecalciferol (vitamin D3) 125 125 mcg PO DAILY #90 caps 01/13/22 mcg (5,000 unit) capsule alprazolam 0.25 mg tablet See Rx Instructions PO TID PRN 05/08/22 anxiety #90 tabs sertraline 50 mg tablet 50 mg PO DAILY #90 tabs 08/05/22 hydrochlorothiazide 25 mg tablet 25 mg PO QAM #90 tabs 09/08/22 amoxicillin 875 mg-potassium 1 tab PO BID 10 days #20 tabs 02/18/23 clavulanate 125 mg tablet Allergies Allergy/AdvReac Type Severity Reaction Status Date / Time Hartley And Derivatives Allergy Intermediate Hives, Verified 02/18/23 09:32 Itchy/Runny eyes Animal Dander Allergy Uncoded 02/18/23 09:32 General Stated Complaint: Abd Prob NARINDER: 3 Review of Systems Narrative: Review of Systems Constitutional: negative Eyes: negative ENT: negative Cardiovascular: negative Respiratory: negative Gastrointestinal: Left lower quadrant abdominal : negative Musculoskeletal: negative Skin: negative Neurologic: negative Psych: negative PFSH All Active Problems (Updated 02/18/23 @ 12:35 by Jordan Fitzpatrick MD) Diverticulitis (Chronic) Left shoulder pain (Chronic) Smoker (Chronic) Colon cancer screening (Acute) Vitamin D deficiency (Acute) Low back pain (Chronic) HPV (human papilloma virus) infection (Chronic) HPV + 2019 & again 2020 (PAP Neg). Colposcopy Dr. Mcrae early 2021. Pap smear 09/11, ASCUS. Colpo 09/30/2022. ECC performed Morbid obesity with BMI of 45.0-49.9, adult (Acute) Essential hypertension (Acute) Anxiety (Chronic) Right ankle sprain (Acute 07/15/22) Screening for diabetes mellitus (Acute) Tick bite (Acute) Medical History COVID-19 07/2021, uri-resolved Fluid retention in legs Left flank pain Plantar fasciitis, right (01/20/18) Posterior tibial tendinitis, right leg (01/20/18) Surgical History Abdominal hysterectomy KATIE; B/L OOPHORECTOMY 1992 Cervix remains intact Cholecystectomy (~1992) , Ectopic (~1987) Family History Mother Diabetes Personal history of malignant neoplasm BREAST Thyroid disease Grandfather Essential hypertension Heart disease Grandmother Diabetes Personal history of malignant neoplasm BREAST MATERNAL FAMILY HX CAD (coronary artery disease) Social History Smoking/Tobacco Use Status: Current every day Tobacco Type: cigarettes Tobacco: How many years used: 40 Quit status: considering quitting Second Hand Exposure: Yes Smoking risk assessment performed?: Yes Alcohol Intake: current Alcohol Intake frequency: holidays/special occasions only Drug use: Never Substance use type: does not use Caregiver/Support person: No Household members: spouse Housing: house Communication Needs: None Do you need help understanding health information?: Never Pets and animals: Yes Pets and animals: dog(s) Sexually active: Yes Do you think of yourself as: straight/heterosexual Current gender identity: female What is your relationship status?: How often do you talk on the phone with friends or family?: three or more times per week How often do you get together with friends or relatives?: once per week How often do you attend scientologist or jewish services?: decline to answer Do you belong to any clubs or organized social groups?: no Panel score (0-1 are the most socially isolated patients): 2 What type of physical activity do you participate in: walking Duration: 30-45 minutes/day Frequency: 5-6 times per week Laly/Taoist: Church Special laly needs: No Seatbelt use: always Helmet use: Yes Helmet use: always Drive intox or ride w/intox petroleum transport driver: No Do you feel safe at home: Yes Do you feel safe in your relationship?: Yes Exam Narrative Exam Narrative: Physical Examination General: alert, awake, cooperative, resting comfortably, no acute distress HEENT: normocephalic, atraumatic; PERRL, EOM intact, conjunctiva normal; no nasal discharge; moist mucous membranes, oral and pharyngeal mucosa normal, tolerating secretions Neck: supple, trachea midline; full ROM Chest: normal to inspection Respiratory: normal respiratory effort, speaking in full sentences, clear to auscultation, no wheezing, rales or rhonchi Cardiac: regular rate, regular rhythm, S1S2 intact, no murmurs rubs or gallops GI: abdomen soft, mild left lower quadrant abdominal pain without guarding or rebounding, non-distended; no palpable mass or hepatosplenomegaly Back: No CVA tenderness Skin: no lesions, rashes or trauma appreciated Neuro: AAOx3, normal speech, moving all extremities Psych: Appropriate mood and affect Course Vital Signs Vital signs: Vital Signs Temperature 37.1 C 02/18/23 09:29 Pulse 89 02/18/23 09:29 Respiratory Rate 16 02/18/23 09:29 Blood Pressure 123/74 02/18/23 09:29 Pulse Oximetry 96 02/18/23 09:29 Temperature 37.1 C 02/18/23 09:29 Temperature Source Temporal Artery Scan 02/18/23 09:29 Pulse 89 02/18/23 09:29 Respiratory Rate 16 02/18/23 09:29 Respiratory Effort Normal 02/18/23 09:30 Blood Pressure 123/74 02/18/23 09:29 Blood Pressure Position Sitting 02/18/23 09:29 Pulse Oximetry 96 02/18/23 09:29 Oxygen Delivery Method Room Air 02/18/23 09:29 Oxygen Flow Rate 0 02/18/23 09:29 Pain Level 4 02/18/23 09:29 Lab/Test Results Lab/Test Results: POC- Test(urine) Negative
[2023-02-18 09:54] VITALS: BP 131/62; PULSE 90; RESP 20; TEMP 36.6; O2SAT 93
[2023-02-18 09:54] LABS: Bacteria Rare HPF (Negative); C & S Indicated? No; Casts Negative LPF (Negative); Crystals Negative HPF (Negative); Epithelial Cells Moderate HPF (Negative); Mucus Heavy (Negative); WBC 0-2 HPF (0-5)
[2023-02-18 10:19] LABS: Abs Immature Grans 0.03 10^3/uL (0.0-0.06); Absolute Basophil Count 0.06 10^3/uL (0.0-0.2); Absolute Lymphocyte Count 1.91 10^3/uL (1.2-3.4); Absolute Monocyte Count 1.02 10^3/uL (0.1-0.8); Basophils % 0.5; Eosinophils % 0.8; HCT 48.7 % (36.0-46.0); HGB 16.8 g/dL (11.2-15.7); Immature Grans % 0.2; Lymphocytes % 15.5; MCH 31.2 pg (27.0-33.0); MCHC 34.5 % (32.0-36.0); MCV 91 fL (80-95); Monocytes % 8.3; Neutrophils % 74.7; Platelet Count 200 10^3/uL (130-400); RBC 5.38 10^6/uL (3.93-5.22); RDW 12.9 % (11.7-14.6); RDW-SD 42.5 fL
[2023-02-18 10:20] LABS: Absolute Neutrophil Count 9.19 10^3/uL (1.2-6.7)
[2023-02-18 10:51] LABS: ALT 24 U/L (14-59); AST 12 U/L (15-37); Alkaline Phosphatase 78 U/L (46-116); Anion Gap 8.4 mmol/L (3-11); BUN 12 mg/dL (7-18); Bilirubin, Total 0.8 mg/dL (0.2-1.0); CO2 26.6 mmol/L (21.0-32.0); CREATININE 0.9 mg/dL (0.55-1.02); Calcium 8.9 mg/dL (8.5-10.1); Chloride 107 mmol/L (98-107); Glucose 123 mg/dL (74-106); Sodium 142 mmol/L (136-145); Total Protein 7.5 g/dL (6.4-8.2)
--- NOTE | 2023-02-18 11:02 | NUR.NOTE ---
Nursing Note: Pt currently sleeping. Pt understands next steps of care. Pt has call light and warm blanket for comfort.
[2023-02-18] MEDS: Normal Saline - Diluent 50 ML VIAL IJ (11:49)
[2023-02-18] MEDS: Normal Saline Flush 10 ML SYR IVP (11:50)
[2023-02-18] MEDS: Omnipaque 350 MG/ML 500 ML BTL-Imaging package 86 ML IJ (11:50)
--- NOTE | 2023-02-18 12:24 | NUR.NOTE ---
Nursing Note: Pt understands next steps of care and wait times. Pt comfortable at this time.
[2023-02-18 12:27] VITALS: BP 113/66; PULSE 80; RESP 20; O2SAT 99
[2023-02-18 12:41] VITALS: BP 116/78; PULSE 76; RESP 18; O2SAT 99
--- NOTE | 2023-02-18 12:42 | NUR.NOTE ---
Nursing Note: Pt understands d/c instructions. Pt thanked this RN for care. PIV removed without complication and bleeding controlled. Pt ambulated to waiting room in no signs of distress.
== END 2023-02-18 17:23 | disposition home or self-care (01) ==
PROVIDERS: Emergency Provider Emergency Medicine; PCP Nurse Practitioner Family
DX: K57.92 Diverticulitis of intestine, part unspecified, without perforation or abscess without bleeding (principal); I10 Essential (primary) hypertension; Z90.710 Acquired absence of both cervix and uterus
CPT/HCPCS: 80053; 81025; 99285; 74177; 81003; 81015; 85025; 99283

== ENCOUNTER 2023-03-18 02:41 | Outpatient (CLI) | payer OTHER, SELFPAY ==
[2023-03-18 18:14] LABS: TSH (W/Ref FT4) 0.72 uIU/mL (0.36-3.74)
[2023-03-20 11:12] LABS: Lyme Ab w Rflx to Lyme Confirm Negative (Negative)
[2023-03-22 17:59] LABS: Anaplasma phagocytophilum Negative (Negative); B. miyamotoi PCR Negative (Negative); Babesia divergens/MO-1 Negative (Negative); Babesia duncani Negative (Negative); Babesia microti Negative (Negative); Ehrlichia chaffeensis Negative (Negative); Ehrlichia ewingii/canis Negative (Negative); Ehrlichia muris eauclairensis Negative (Negative)
== END 2023-03-18 02:42 | disposition home or self-care (01) ==
LOC: LBO 02:41
PROVIDERS: PCP Nurse Practitioner Family; Visit Provider Nurse Practitioner Family
DX: T14.8XXA Other injury of unspecified body region, initial encounter (principal); E66.01 Morbid (severe) obesity due to excess calories; Z68.42 Body mass index [BMI] 45.0-49.9, adult; W57.XXXA Bitten or stung by nonvenomous insect and other nonvenomous arthropods, initial encounter
CPT/HCPCS: 36415; 87798; 84443; 86618

== ENCOUNTER 2023-07-08 15:04 | Outpatient (REF) | payer OTHER, SELFPAY ==
--- NOTE | 2023-07-08 14:00 | SKI_PTH ---
PATIENT: Emily Hall LOC: [facility] U#:[id number] AGE/SX: 57/F ROOM: RE07/08/[address]: Ministerio Bah DNP : 1965 BED: DIS: 07/08/2023 SPEC #: [id number] RECD: 07/09/23 10:27 STATUS: NAVDEEP REQ #: [id number] POPPY: 07/08/23 14:[address]: Ministerio Gardner DEPT: Surgical Specimen RECD BY: Camryn Bonilla Tissues: 1 - SKIN BIOPSY(SHAVE/PUNCH) Procedures: SKIN LEVEL 4 SPECIAL STAIN 1 Comments: [id number]
[2023-07-08 21:15] LABS: Abs Immature Grans 0.02 10^3/uL (0.0-0.06); Absolute Basophil Count 0.08 10^3/uL (0.0-0.2); Absolute Eosinophil Count 0.16 10^3/uL (0.0-0.7); Absolute Lymphocyte Count 2.71 10^3/uL (1.2-3.4); Absolute Monocyte Count 0.75 10^3/uL (0.1-0.8); Absolute Neutrophil Count 5.43 10^3/uL (1.2-6.7); Basophils % 0.9; Eosinophils % 1.7; HCT 50.2 % (36.0-46.0); Immature Grans % 0.2; Lymphocytes % 29.6; MCH 30.4 pg (27.0-33.0); MCHC 33.9 % (32.0-36.0); MCV 90 fL (80-95); MPV 11.5 fL (8.0-11.0); Monocytes % 8.2; Neutrophils % 59.4; Platelet Count 203 10^3/uL (130-400); RBC 5.59 10^6/uL (3.93-5.22); RDW 12.6 % (11.7-14.6); RDW-SD 41.5 fL; WBC 9.15 10^3/uL (4.4-10.8)
[2023-07-08 21:32] LABS: C-Reactive Protein 1.84 mg/dL (0.0-0.3)
[2023-07-09 14:04] LABS: ESR (LRH) 50 mm/hr
[2023-07-13 10:06] LABS: Lab Add On Test DONE
[2023-07-14 13:41] LABS: ANA Interpretation Positive (Negative); ANA Titer Pattern 1:160 Homogeneous
== END 2023-07-08 15:05 | disposition home or self-care (01) ==
LOC: NCHCN 15:04
PROVIDERS: PCP Nurse Practitioner Family; Visit Provider Nurse Practitioner Family
DX: R53.83 Other fatigue (principal); L30.8 Other specified dermatitis
CPT/HCPCS: 85652; 85025; 86038; 86140; 88305; 88312

== ENCOUNTER 2023-09-22 10:57 | Outpatient (REF) | payer OTHER, SELFPAY ==
--- NOTE | 2023-09-22 10:40 | PAPFT_PTH ---
PATIENT: Emily Hall LOC: N U#:[id number] AGE/SX: 58/F ROOM: RE09/22/[address]: Kerry Mcrae DO : 1965 BED: DIS: 09/22/2023 SPEC #: [id number] RECD: 09/22/23 12:59 STATUS: NAVDEEP REQ #: [id number] POPPY: 09/22/23 10:[address]: Kerry Mcrae DEPT: [facility] Cytology RECD BY: Camryn Bonilla ENTERED: 09/22/23 12:59 SP TYPE: PAPFT OTHR DR: Ministerio Bah DNP Tissues: 1 - CX/ENDOCX FOR PAP SMEARS Procedures: PAP THIN PREP/[facility] Screening HPV DNA PROBE Comments: [id number]
== END 2023-09-22 10:58 | disposition home or self-care (01) ==
LOC: LBN 10:57
PROVIDERS: PCP Nurse Practitioner Family; Visit Provider Obstetrics & Gynecology
DX: Z11.51 Encounter for screening for human papillomavirus (HPV) (principal); Z12.4 Encounter for screening for malignant neoplasm of cervix
CPT/HCPCS: 88142; 87624

== ENCOUNTER → 2023-09-29 00:52 | Outpatient (CLI) | payer OTHER, SELFPAY ==
--- NOTE | 2023-09-29 07:32 | DI.MAMMO_ITS ---
Exam(s) MAMMO SCREENING EXAM: MAMMO SCREENING CLINICAL HISTORY: screening. TECHNIQUE: Bilateral full field digital CC and MLO mammographic images were obtained with 3D tomosyn thesis and utilizing computer aided detection (CAD). COMPARISON: Prior mammograms were reviewed. FINDINGS: There has been no significant change in the appearance and distribution of the fibroglandular tissue. There are no CAD designations. There are no new spiculated masses nor malignant appearing microcalcification groups. Medially located inferior aspect right breast skin mole again noted. There is no significant architectural distortion nor skin thickening-retraction. IMPRESSION: No radiographic evidence of malignancy. BI-RADS Category 1 - Negative Breast Density - Category A - Almost entirely fatty Breast density Category C or D implies that the patient has dense breast tissue. Dense breast tissue can make it harder to find cancer on a mammogram. Dense breast tissue is also associated with an incr eased risk of breast cancer. This information about the result of the mammogram report was provided to the patient to raise their awareness. Use this report when you speak with the patient about their risks for breast cancer, which includes their family history. At that time, you may recommend additional screening tests (Ultrasoun d or MRI) as these tests may add significant information. A negative radiographic report should not delay biopsy if a dominant or clinically suspicious mass is present. Up to ten percent of cancers are not identified on mammography. A negative report may reinforce clinical impression. Adenosis and dense breasts may obscure an underlying neoplasm. False positive reports average 6 to 10%. Patient will receive a letter notifying them of these results.
== END ==
PROVIDERS: PCP Nurse Practitioner Family; Visit Provider Obstetrics & Gynecology
DX: Z12.31 Encounter for screening mammogram for malignant neoplasm of breast (principal)
CPT/HCPCS: 77063; 77067

== ENCOUNTER → 2023-10-08 01:35 | Outpatient (CLI) | payer OTHER, SELFPAY ==
--- NOTE | 2023-10-08 08:30 | DI.RAD_ITS ---
Exam(s) XR HAND RT COMPLETE XR WRIST RT COMPL NAVICULAR EXAM: XR HAND RT COMPLETE CLINICAL HISTORY: no improvement with PT M25.531 PAIN RT WRIST. TECHNIQUE: 2D digital imaging was performed. Three views of the hand. Three views of the wrist.. COMPARISON: CR LEFT FOREARM from 03/18/2008 CR XR WRIST RT COMPL NAVICULAR from 10/08/2023 FINDINGS: BONES: No acute fracture is present. No bony destructive lesion is seen. JOINTS: No dislocation present. No significant degenerative changes. SOFT TISSUE: Normal chronic appearing small soft tissue calcification at the volar aspect between the heads of the 2nd and 3rd metacarpals. IMPRESSION: No acute abnormality DATA REPOSITORY: RADIATION DOSE DELIVERED:
== END ==
PROVIDERS: PCP Nurse Practitioner Family; Visit Provider Nurse Practitioner Family
DX: M25.531 Pain in right wrist (principal); M25.541 Pain in joints of right hand
CPT/HCPCS: 73110; 73130

== ENCOUNTER 2024-02-01 09:39 | Emergency (ER) | payer OTHER, SELFPAY ==
[2024-02-01 09:50] VITALS: BP 144/97; PULSE 96; RESP 15; TEMP 36.2; O2SAT 98
[2024-02-01] MEDS: Ketorolac 10 MG TAB PO (10:53)
[2024-02-01] MEDS: Methocarbamol 500 MG TAB 1000 MG PO (10:54)
--- NOTE | 2024-02-01 11:15 | DI.RAD_ITS ---
Exam(s) XR HIP RT COMPLETE AP PELVIS EXAM: XR HIP RT COMPLETE AP PELVIS CLINICAL HISTORY: RIGHT HIP PAIN. TECHNIQUE: 2D digital imaging was performed of the right hip. Two images were obtained. AP pelvis a nd lateral right hip views were obtained. COMPARISON: No exams were available for comparison FINDINGS: BONES: No acute fracture is present. No bony destructive lesion is seen. JOINTS: No dislocation present. SOFT TISSUE: Normal. IMPRESSION: Unremarkable radiographs of the right hip. Unremarkable radiographs of the pelvis. DATA REPOSITORY: RADIATION DOSE DELIVERED:
--- NOTE | 2024-02-01 11:20 | DI.RAD_ITS ---
Exam(s) XR LUMBAR SPINE AP, LAT EXAM: XR LUMBAR SPINE AP, LAT CLINICAL HISTORY: BACK PAIN. TECHNIQUE: 2D digital imaging was performed of the lumbar spine. Two images were obtained. AP and lateral views were obtained. COMPARISON: No exams were available for comparison FINDINGS: There are mild degenerative changes seen in the spine. No acute fractures or subluxations are seen. No spondylolisthesis or definite spondylolysis is seen. Mild vascular calcification is present. IMPRESSION: No acute fracture or subluxation in the lumbar spine. Mild degenerative changes are present. DATA REPOSITORY: RADIATION DOSE DELIVERED:
--- NOTE | 2024-02-01 11:28 | DI.RAD_ITS ---
Exam(s) XR COCCYX EXAM: XR COCCYX CLINICAL HISTORY: PAIN. TECHNIQUE: 2D digital imaging was performed. Two views were obtained. COMPARISON: No exams were available for comparison FINDINGS: BONES: No acute fracture is present. No bony destructive lesion is seen. JOINTS: No dislocation present. SOFT TISSUE: Normal. IMPRESSION: Unremarkable radiographs of the coccyx. DATA REPOSITORY: RADIATION DOSE DELIVERED:
--- NOTE | 2024-02-01 14:11 | W.ED.GENAD ---
Discharge Plan Disposition Patient Disposition: Home Discharge Details Clinical Impression: Hip pain, Fall Primary Care Provider: Ministerio Gardner ED Provider: Vero Mathews Home Meds and New Rx's Prescriptions: No Action acetaminophen [Tylenol] 325 mg capsule 325 mg PO ONCE PRN naproxen sodium 220 MG tablet 2 tab PO DAILY PRN Patient Comments: cholecalciferol (vitamin D3) 125 mcg (5,000 unit) capsule 125 mcg PO DAILY Qty: 90 4RF sertraline 50 mg tablet See Rx Instructions .ROUTE .COMPLEX Qty: 90 3RF Dose Instruction: TAKE ONE TABLET BY MOUTH EVERY DAY Rx Instructions: TAKE ONE TABLET BY MOUTH EVERY DAY alprazolam 0.5 mg tablet See Rx Instructions PO TID PRN (Reason: anxiety) Qty: 30 0RF Rx Instructions: 0.5-1 tab orally three times a day PRN; hydrochlorothiazide 25 mg tablet 25 mg PO QAM Qty: 90 3RF Centrum Silver Women 8 mg iron-400 mcg-50 mcg tablet 1 tab PO DAILY Discharge Instructions Additional Instructions: xrays today do not show any fractures you might be sore for a little bit longer, take motrin and tylenol as needed Stand Alone Forms: Work Release HPI General Date/Time Provider Initiated Documentation: 02/01/24 10:44. Limitations to Documentation: no limitations. Information obtained by: patient. HPI Narrative: 58-year-old female with past medical history of hypertension presents for evaluation of acute right hip and back pain. Reports that 5 days ago she slipped at home and landed in the splits. She reports that she has persistent pain in her right hip and but. Worse with sitting. Not significantly relieved with medications. No difficulty walking. Denies any numbness or tingling. Denies any change in bowel or bladder. Related Data Home Medications Medication Instructions Recorded Confirmed naproxen sodium 220 mg tablet 2 tab PO DAILY PRN 11/15/14 02/01/24 cholecalciferol (vitamin D3) 125 125 mcg PO DAILY #90 caps 01/13/22 02/01/24 mcg (5,000 unit) capsule acetaminophen 325 mg capsule 325 mg PO ONCE PRN 07/23/22 02/01/24 (Tylenol) sertraline 50 mg tablet See Rx Instructions .Route 07/27/23 02/01/24 .COMPLEX #90 tabs alprazolam 0.5 mg tablet See Rx Instructions PO TID PRN 08/26/23 02/01/24 anxiety #30 tabs pffiabrw-ictd-jndl 8 mg-folic 400 1 tab PO DAILY 08/28/23 02/01/24 mcg-K 50 mcg-lutein 300 mcg tablet (Centrum Silver Women) hydrochlorothiazide 25 mg tablet 25 mg PO QAM #90 tabs 01/20/24 02/01/24 Previous Rx's Medication Instructions Recorded cholecalciferol (vitamin D3) 125 125 mcg PO DAILY #90 caps 01/13/22 mcg (5,000 unit) capsule sertraline 50 mg tablet See Rx Instructions .Route 07/27/23 .COMPLEX #90 tabs alprazolam 0.5 mg tablet See Rx Instructions PO TID PRN 08/26/23 anxiety #30 tabs hydrochlorothiazide 25 mg tablet 25 mg PO QAM #90 tabs 01/20/24 Allergies Allergy/AdvReac Type Severity Reaction Status Date / Time [place] And Derivatives Allergy Intermediate Hives, Verified 02/01/24 10:56 Itchy/Runny eyes hair dye Allergy Severe Skin Rash Uncoded 02/01/24 10:56 olay age defining Allergy Mild Topical Uncoded 02/01/24 10:56 Irritation Animal Dander Allergy unknown Uncoded 02/01/24 10:56 General Stated Complaint: Orthopedic NARINDER: 4 Exam Narrative Exam Narrative: Review of Systems: All systems reviewed & are unremarkable except as noted in HPI and below Well-developed, no acute distress, laying on her left side NCAT PERRL, normal conjunctiva RRR Unlabored respiratory effort Nondistended abdomen Extremities w/o deformity, no cyanosis, no edema No midline back tenderness, step-off or deformity, some tenderness of the right glute, no tenderness of the right hip, normal range of motion No rashes or lesions. no focal neurologic deficits Appropriate mood and affect Course Vital Signs Vital signs: Vital Signs Temperature 36.2 C L 02/01/24 09:50 Pulse 96 H 02/01/24 09:50 Respiratory Rate 15 02/01/24 09:50 Blood Pressure 144/97 H 02/01/24 09:50 Pulse Oximetry 98 02/01/24 09:50 Temperature 36.2 C L 02/01/24 09:50 Temperature Source Temporal Artery Scan 05/13/24 09:50 Pulse 96 H 02/01/24 09:50 Respiratory Rate 15 02/01/24 09:50 Respiratory Effort Normal, Non-Labored 02/01/24 10:37 Blood Pressure 144/97 H 02/01/24 09:50 Blood Pressure Position Sitting 02/01/24 09:50 Pulse Oximetry 98 02/01/24 09:50 Oxygen Delivery Method Room Air 02/01/24 09:50 Oxygen Flow Rate 0 02/01/24 09:50 Pain Level 9 02/01/24 09:50 Medical Decision Making Emergent evaluation of right hip and back pain after a fall. Fall occurred several days ago. No acute deformity or neurovascular change on examination. Doubt fracture. I doubt acute spinal cord injury. Patient provided pain medication in the emergency department. Imaging was obtained and reviewed. There is no acute fracture noted. Given her lack of difficulty with walking, I doubt occult hip fracture and don't feel more advanced imaging is indicated. recommended continued anti-inflammatory as well as gentle stretching. Follow-up with PCP if symptoms or not improving. Medical Records Medical records reviewed: Yes I reviewed the patient's medical records. Lab Data Lab results reviewed: Yes I reviewed the patient's lab results. Quality:SDOH Health Related Social Needs: No Data to Display PFSH All Active Problems Fall (Acute) Hip pain (Acute) De Quervain's tenosynovitis, right (Acute) 40 mg Depo-medrol: 10/22/23 Bilateral wrist pain (Acute) with numbness/tingling, R>L Skin lesions (Acute) Fatigue (Acute) Screening for diabetes mellitus (Acute) Right ankle sprain (Acute 07/15/22) Anxiety (Chronic) Essential hypertension (Acute) Morbid obesity with BMI of 45.0-49.9, adult (Acute) HPV (human papilloma virus) infection (Chronic) HPV + 2019 & again 2020 (PAP Neg). Colposcopy Dr. Mcrae early 2021. Pap smear 09/11, ASCUS. Colpo 09/30/2022. ECC performed Pap 09/22/2023. If positive, colposcopy. Low back pain (Chronic) Vitamin D deficiency (Acute) Colon cancer screening (Acute) Smoker (Chronic) Left shoulder pain (Chronic) Medical History Scalp lesion Resolved 06/17. Fungal. Responded to Lamisil Tick bite COVID-19 07/2021, uri-resolved Left flank pain Fluid retention in legs Plantar fasciitis, right (01/20/18) Posterior tibial tendinitis, right leg (01/20/18) Surgical History , Ectopic (~1987) Abdominal hysterectomy KATIE; B/L OOPHORECTOMY 1992 Cervix remains intact Cholecystectomy (~1992) Family History Mother Diabetes Personal history of malignant neoplasm BREAST Thyroid disease Grandfather Essential hypertension Heart disease Grandmother Diabetes Personal history of malignant neoplasm BREAST MATERNAL FAMILY HX CAD (coronary artery disease) Social History Smoking/Tobacco Use Status: Current every day Tobacco Type: cigarettes Smoking packs per day: 0.5 Smoking cigarettes per day: 10.0 Tobacco: How many years used: 44 Quit status: considering quitting Second Hand Exposure: Yes Smoking risk assessment performed?: Yes Alcohol Intake: current Alcohol Intake frequency: holidays/special occasions only Drug use: Never Substance use type: does not use Caregiver/Support person: No Household members: spouse Housing: house Communication Needs: None Do you need help understanding health information?: Never Pets and animals: Yes Pets and animals: dog(s) Sexually active: Yes Do you think of yourself as: straight/heterosexual Current gender identity: female What is your relationship status?: How often do you talk on the phone with friends or family?: three or more times per week How often do you get together with friends or relatives?: once per week How often do you attend cheondoism or gnosticist services?: decline to answer Do you belong to any clubs or organized social groups?: no Panel score (0-1 are the most socially isolated patients): 2 What type of physical activity do you participate in: walking Duration: 30-45 minutes/day Frequency: 5-6 times per week Laly/Alevism: Methodist Special laly needs: No Seatbelt use: always Helmet use: Yes Helmet use: always 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
== END 2024-02-01 12:01 | disposition home or self-care (01) ==
PROVIDERS: Emergency Provider Emergency Medicine; PCP Nurse Practitioner Family
DX: M25.551 Pain in right hip (principal); I10 Essential (primary) hypertension; F17.210 Nicotine dependence, cigarettes, uncomplicated; W01.0XXA Fall on same level from slipping, tripping and stumbling without subsequent striking against object, initial encounter; Y93.01 Activity, walking, marching and hiking; Y92.018 Other place in single-family (private) house as the place of occurrence of the external cause
CPT/HCPCS: 99283; 72100; 72220; 73502

== ENCOUNTER 2024-05-18 13:51 | Day surgery (SDC) | payer OTHER, SELFPAY ==
--- NOTE | 2024-05-18 11:55 | W.PM.DSUDISC ---
Date of service: 05/18/24 Time of Service: 11:55 Discharge Plan Disposition Patient Disposition: Home Condition: Good Discharge Details Attending Provider: Yaron Jarrett Primary Care Provider: Ministerio Gardner Home Meds and New Rx's Prescriptions: New hydrocodone-acetaminophen 5-325 mg tablet 1 tab PO Q6H PRN (Reason: pain) Qty: 6 0RF acetaminophen 500 mg tablet 1,000 mg PO TID Qty: 90 0RF ibuprofen 600 mg tablet 600 mg PO TID PRN (Reason: pain) Qty: 90 0RF Continued cholecalciferol (vitamin D3) 125 mcg (5,000 unit) capsule 125 mcg PO DAILY Qty: 90 4RF sertraline 50 mg tablet See Rx Instructions .ROUTE .COMPLEX Qty: 90 3RF Dose Instruction: TAKE ONE TABLET BY MOUTH EVERY DAY Rx Instructions: TAKE ONE TABLET BY MOUTH EVERY DAY alprazolam 0.5 mg tablet See Rx Instructions PO TID PRN (Reason: anxiety) Qty: 30 0RF Rx Instructions: 0.5-1 tab orally three times a day PRN; hydrochlorothiazide 25 mg tablet 25 mg PO QAM Qty: 90 3RF Centrum Silver Women 8 mg iron-400 mcg-50 mcg tablet 1 tab PO DAILY Discontinued acetaminophen [Tylenol] 325 mg capsule 325 mg PO ONCE PRN naproxen sodium 220 MG tablet 2 tab PO DAILY PRN Patient Comments: Discharge Instructions Additional Instructions: Jaqueline'juan Discharge Instructions Activity: You should keep the hand elevated as much as possible for the first few days. You may use the other fingers as tolerated but avoid trying to do too much too soon. You may perform light activities with the splint in place. Dressing/Cast: Your splint should stay in place at all times. Do NOT get it wet. You may loosen the MELODY wrap if you feel it is too tight and then rewrap more loosely. Medications: - You should take Tylenol and Ibuprofen for baseline pain control. - You have Hydrocodone for breakthrough pain. - You may apply ice over the thumb. Follow-up: 7-10 days Stand Alone Forms: Kolby Lewis Tunnel Release Activity:: Elevate Remove Dressings/Wound Care:: Do Not Remove Shower/Bathe:: Cover Diet:: As Tolerated Discharge Orders Discharge Orders: Discharge Order (Routine); Ordered 05/18/24 Ordered By: Nate Peterson DS: Diagnosis Discharge Diagnosis (1) De Quervain's tenosynovitis, right: Status: Acute (2) Right carpal tunnel syndrome: Status: Suspected
[2024-05-18] MEDS: Celecoxib 200 MG CAP 400 MG PO (14:29)
[2024-05-18] MEDS: Acetaminophen 500 MG TAB 1000 MG PO (14:29)
[2024-05-18] MEDS: Lactated Ringers 1,000 ML 80 ML IV (14:34)
--- NOTE | 2024-05-18 14:42 | W.PREOPHP ---
Assessment and Plan Assessment and plan (1) Right carpal tunnel syndrome: Status: Suspected (2) De Quervain's tenosynovitis, right: Status: Acute Assessment and plan: Cristina is a 58-year-old female with de Quervain's tenosynovitis about the right side along with carpal tunnel syndrome on the right side. She has failed other nonoperative options and is here today for surgical treatment. I discussed the technical details of the surgery. I reviewed the risk to include bleeding, infection, pain, stiffness, recurrence or continued numbness, tendon subluxation, incomplete release, need for repeat procedures. Despite these risk, she elects to proceed. She is an active smoker with hypertension and obese without any other acute medical changes. History of Present Illness History of Present Illness Chief Complaint: Right hand and wrist numbness and pain Narrative: Laura is a 58-year-old female who has been seen previously for pain and numbness about her right hand and wrist. Please see the previous office note. She is been diagnosed with carpal tunnel syndrome as well as de Quervain's tenosynovitis. She continues to be limited by these symptoms despite other nonoperative options and is here today for surgical treatment. She denies any acute medical changes. Review of Systems All systems reviewed & are unremarkable except as noted in HPI and below PFSH All Active Problems De Quervain's tenosynovitis, right (Acute) 40 mg Depo-medrol: 10/22/23 S/P Release: 05/18/2024 Bilateral wrist pain (Acute) with numbness/tingling, R>L Skin lesions (Acute) Fatigue (Acute) Screening for diabetes mellitus (Acute) Right ankle sprain (Acute 07/15/22) Anxiety (Chronic) Essential hypertension (Acute) Morbid obesity with BMI of 45.0-49.9, adult (Acute) HPV (human papilloma virus) infection (Chronic) HPV + 2019 & again 2020 (PAP Neg). Colposcopy Dr. Mcrae early 2021. Pap smear 09/11, ASCUS. Colpo 09/30/2022. ECC performed Pap 09/22/2023. If positive, colposcopy. Low back pain (Chronic) Vitamin D deficiency (Acute) Colon cancer screening (Acute) Smoker (Chronic) Left shoulder pain (Chronic) Medical History Scalp lesion Resolved 06/17. Fungal. Responded to Lamisil Tick bite COVID-19 07/2021, uri-resolved Left flank pain Fluid retention in legs Plantar fasciitis, right (01/20/18) Posterior tibial tendinitis, right leg (01/20/18) Surgical History , Ectopic (~1987) Abdominal hysterectomy KATIE; B/L OOPHORECTOMY 1992 Cervix remains intact Cholecystectomy (~1992) Family History Mother Diabetes Personal history of malignant neoplasm BREAST Thyroid disease Grandfather Essential hypertension Heart disease Grandmother Diabetes Personal history of malignant neoplasm BREAST MATERNAL FAMILY HX CAD (coronary artery disease) Social History Smoking/Tobacco Use Status: Current every day Tobacco Type: cigarettes Smoking packs per day: 0.5 Smoking cigarettes per day: 10.0 Tobacco: How many years used: 44 Quit status: considering quitting Second Hand Exposure: Yes Smoking risk assessment performed?: Yes Alcohol Intake: current Alcohol Intake frequency: holidays/special occasions only Drug use: Never Substance use type: does not use Caregiver/Support person: No Household members: spouse Housing: house Communication Needs: None Do you need help understanding health information?: Never Pets and animals: Yes Pets and animals: dog(s) Sexually active: Yes Do you think of yourself as: straight/heterosexual Current gender identity: female What is your relationship status?: How often do you talk on the phone with friends or family?: three or more times per week How often do you get together with friends or relatives?: once per week How often do you attend hinduism or shinto services?: decline to answer Do you belong to any clubs or organized social groups?: no Panel score (0-1 are the most socially isolated patients): 2 What type of physical activity do you participate in: walking Duration: 30-45 minutes/day Frequency: 5-6 times per week Laly/Lutheran: Mandaen Special laly needs: No Seatbelt use: always Helmet use: Yes Helmet use: always Drive intox or ride w/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 Do you feel safe at home: Yes Do you feel safe in your relationship?: Yes Meds Allergies and Home Medications Allergies Allergy/AdvReac Type Severity Reaction Status Date / Time [place] And Derivatives Allergy Intermediate Hives, Verified 05/18/24 14:20 Itchy/Runny eyes hair dye Allergy Severe Skin Rash Uncoded 05/18/24 14:20 olay age defining Allergy Mild Topical Uncoded 05/18/24 14:20 Irritation Animal Dander Allergy unknown Uncoded 05/18/24 14:20 Home Medications ?Medication ?Instructions ?Recorded ?Confirmed ?Type cholecalciferol (vitamin D3) 125 125 mcg PO DAILY #90 caps 01/13/22 05/18/24 Rx mcg (5,000 unit) capsule sertraline 50 mg tablet See Rx Instructions .Route 07/27/23 05/18/24 Rx .COMPLEX #90 tabs alprazolam 0.5 mg tablet See Rx Instructions PO TID PRN 08/26/23 05/18/24 Rx anxiety #30 tabs xquthyby-nvoe-suop 8 mg-folic 400 1 tab PO DAILY 08/28/23 05/18/24 History mcg-K 50 mcg-lutein 300 mcg tablet (Centrum Silver Women) hydrochlorothiazide 25 mg tablet 25 mg PO QAM #90 tabs 01/20/24 05/18/24 Rx acetaminophen 500 mg tablet 1,000 mg (2 x 500 mg) PO TID #90 05/18/24 Rx tabs hydrocodone 5 mg-acetaminophen 325 1 tab PO Q6H PRN pain #6 tabs 05/18/24 Rx mg tablet ibuprofen 600 mg tablet 600 mg PO TID PRN pain #90 tabs 05/18/24 Rx Exam Narrative Exam Narrative: Obese. No acute distress. Alert and orient x 3. Resp Effort & Inspection: normal respiratory effort Auscultation: clear to auscultation bilaterally Cardio Rate: regular rate Rhythm: regular rhythm
[2024-05-18 14:47] VITALS: BMI 44.1
--- NOTE | 2024-05-18 14:47 | W.ANESPRE ---
General Info Date of Service Date Performed: 05/18/24 Height: 5 ft Weight: 102.5 kg Body Mass Index (BMI): 44.1 Surgical Procedure: Operation Date: 05/18/24 15:25 Proposed Procedure Side Surgeon p Wrist ECTR Right Yaron Jarrett MD s Wrist Dequervains Release Right Yaron Jarrett MD Meds Allergies and Home Medications Allergies Allergy/AdvReac Type Severity Reaction Status Date / Time [place] And Derivatives Allergy Intermediate Hives, Verified 05/18/24 14:20 Itchy/Runny eyes hair dye Allergy Severe Skin Rash Uncoded 05/18/24 14:20 olay age defining Allergy Mild Topical Uncoded 05/18/24 14:20 Irritation Animal Dander Allergy unknown Uncoded 05/18/24 14:20 Home Medication ?Medication ?Instructions ?Recorded cholecalciferol (vitamin D3) 125 125 mcg PO DAILY #90 caps 01/13/22 mcg (5,000 unit) capsule sertraline 50 mg tablet See Rx Instructions .Route 07/27/23 .COMPLEX #90 tabs alprazolam 0.5 mg tablet See Rx Instructions PO TID PRN 08/26/23 anxiety #30 tabs byeyyngh-wlss-mxpb 8 mg-folic 400 1 tab PO DAILY 08/28/23 mcg-K 50 mcg-lutein 300 mcg tablet (Centrum Silver Women) hydrochlorothiazide 25 mg tablet 25 mg PO QAM #90 tabs 01/20/24 acetaminophen 500 mg tablet 1,000 mg (2 x 500 mg) PO TID #90 05/18/24 tabs hydrocodone 5 mg-acetaminophen 325 1 tab PO Q6H PRN pain #6 tabs 05/18/24 mg tablet ibuprofen 600 mg tablet 600 mg PO TID PRN pain #90 tabs 05/18/24 Current Visit Medications: Current Medications Generic Name Dose Route Start Last Admin Trade Name Freq PRN Reason Stop Dose Admin Acetaminophen 1,000 mg 05/18/24 06:00 05/18/24 14:29 Acetaminophen 500 Mg Tab PO 05/18/24 23:59 1,000 mg PREOP SURJIT Administration Acetaminophen 650 mg 05/18/24 11:51 Acetaminophen 325 Mg Tab PO 06/17/24 11:50 Q4H PRN PRN Hydrocodone Bitart/Acetaminophen 0 tab 05/18/24 11:51 Hydrocodone 5/Acetaminophen 325 Tab PO 06/17/24 11:50 Q3H PRN PRN Pain Celecoxib 400 mg 05/18/24 06:00 05/18/24 14:29 Celecoxib 200 Mg Cap PO 05/18/24 23:59 400 mg PREOP SURJIT Administration Ringer's Solution 1,000 mls @ 80 mls/hr 05/18/24 06:00 05/18/24 14:34 IV 05/18/24 23:59 80 mls/hr INFUSION SURJIT Administration Cefazolin Sodium/Dextrose 2 gm in 50 mls @ 100 mls/hr 05/18/24 06:00 Ancef Duplex IVPB 05/18/24 23:59 PREOP SURJIT IV Miscellaneous Supplies 1 each 05/18/24 06:00 Iv Access IV 05/18/24 23:59 DIRECTED SURJIT Sodium Chloride 0 ml 05/18/24 06:00 Normal Saline Flush 10 Ml Syr IV 05/18/24 23:59 PRN PRN Sodium Chloride 0 ml 05/18/24 06:00 Normal Saline 10 Ml Vial IJ 05/18/24 23:59 DIRECTED PRN Sterile Water 0 ml 05/18/24 06:00 Water,Injection,Sterile 10 Ml Vial IJ 05/18/24 23:59 DIRECTED PRN PFSH Active Problems Active Problems: Problem Status Onset Code De Quervain's tenosynovitis, right Acute M65.4 Bilateral wrist pain Acute M25.531, M25.532 Skin lesions Acute L98.9 Fatigue Acute R53.83 Screening for diabetes mellitus Acute Z13.1 Right ankle sprain Acute 07/15/22 S93.401A Anxiety Chronic F41.9 Essential hypertension Acute I10 Morbid obesity with BMI of 45.0-49.9, adult Acute E66.01, Z68.42 HPV (human papilloma virus) infection Chronic B97.7 Low back pain Chronic M54.5 Vitamin D deficiency Acute E55.9 Colon cancer screening Acute Z12.11 Smoker Chronic F17.200 Left shoulder pain Chronic M25.512 Medical History Medical History Scalp lesion Resolved 06/17. Fungal. Responded to Lamisil Tick bite COVID-19 07/2021, uri-resolved Left flank pain Fluid retention in legs Plantar fasciitis, right (05/02/18) Posterior tibial tendinitis, right leg (01/20/18) Surgical History Surgical History , Ectopic (~1987) Abdominal hysterectomy KATIE; B/L OOPHORECTOMY 1992 Cervix remains intact Cholecystectomy (~1992) Tobacco Smoking/Tobacco Use Status: Current every day Tobacco Type: cigarettes Smoking packs per day: 0.5 Passive smoking exposure: Yes Second hand exposure: Yes Alcohol Alcohol Intake: current Alcohol intake frequency: holidays/special occasions only Substance Use Substance use: Never Substance use type: does not use Vital Signs and Lab Results Lab Results Blood Type / Crossmatch: No Data to Display Complete Blood Count: No Data to Display Complete Metabolic Panel: No Data to Display Liver Function Panel: No Data to Display Coagulation Panel: No Data to Display Cardiac Panel: No Data to Display Arterial Blood Gas: No Data to Display Venous Blood Gas: No Data to Display Pancreas Panel: No Data to Display Thyroid Panel: No Data to Display Infectious Disease: No Data to Display Blood Cultures: No Data to Display Toxicology Panel: No Data to Display Anesthesia Assessment and Plan Anesthesia History Personal History: No History of Anesthesia Complications Family History: Family History Unknown Exercise Tolerance Exercise Tolerance: Metabolic Equivalents>4 Pertinent Negatives Pertinent Negatives: No Symptoms of GERD, No Major Cardiovascular Symptoms or Complaints and No History of CVA/TIA Cardiac & Pulmonary Exam Cardiac Exam: Normal S1/S2 Heart Sounds Pulmonary Exam: Clear Bilateral Breath Sounds and Active Dry Cough Implantable Cardiac Device Does patient have a Pacemaker or an ICD?: No Airway Exam Known Difficult Airway: No Mallampati Class: 3 Mouth Opening: Narrow (< 3cm) Thyromental Distance: Less than 3 cm Neck Range of Motion: Full ROM Neck Circumference: Thick Teeth Condition: Normal Dentition ASA Classification ASA Score: ASA 3 Emergency Case?: No NPO Status NPO Status: NPO Clears >2 hours, Solids >8 hours Anesthesia Plan Resuscitation Status: Full Code Anesthesia Technique: General Anesthesia Airway Planned: Natural Airway Monitors Used: Standard Monitors
[2024-05-18] MEDS: ceFAZolin 2 GM/50 ML BAG IVPB (15:17)
[2024-05-18] MEDS: Lidocaine 1% Multi-Dose W/EPI 1/100,000 50 ML VIAL (15:28)
[2024-05-18 15:39] VITALS: BP 96/59; PULSE 102; RESP 18; TEMP 36.4; O2SAT 93
--- NOTE | 2024-05-18 15:43 | W.ANESPOSTOP ---
Postoperative Evaluation Date, Time and Location Date Performed: 05/18/24 Time Performed: 15:43 Patient Location: Day Surgery Unit Vital Signs Most Recent Manually Entered Vital Signs: Adult Blood Pressure: 96/59 Heart Rate: 101 Respirations: 18 Oxygen Saturation (%): 94 Temperature (C): 36.4 C Pain Score (0-10 Scale): 0 Pain Score Most Recent Pain Score: Most Recent Pain Score Pain Level 0 05/18/24 14:12 Assessment Mental Status: Awake (Alert & Oriented to Patient Baseline) Airway and Respiratory Function: Patent airway with normal (patient baseline) respiratory exam Cardiovascular Function: Hemodynamically Stable Hydration Status: Adequately Hydrated Nausea & Vomiting: No Nausea or Vomiting Pain: Pt. Denies Any Pain Peripheral Nerve Block: Patient did not receive a nerve block
[2024-05-18 15:44] VITALS: BP 96/59; PULSE 101; RESP 18; TEMPC 36.4; O2SAT 94
[2024-05-18 16:07] VITALS: BP 106/69; PULSE 94; RESP 18; TEMP 36.6; O2SAT 92
--- NOTE | 2024-05-18 16:32 | W.PM.OP ---
Date of service: 05/18/24 Time of Service: 15:00 Operative Note Operative Note DATE OF PROCEDURE: 05/18/24 PRE-OP DIAGNOSIS: Right Carpal Tunnel Syndrome Right Dequervain's Tenosynovitis POST-OP DIAGNOSIS: same PROCEDURE: Right Endoscopic Carpal Tunnel Release Right 1st Extensor Compartment Release SURGEON: Yaron Jarrett ANESTHESIA TYPE: General:No Airway Refer to Anesthesia Record ESTIMATED BLOOD LOSS: 0 PATHOLOGY: none sent TOURNIQUET TIME: 13 COMPLICATIONS: None (However, she did have significant amount of coughing and pulmonary irritation with this uninstrumented airway procedure) Patient was transported to: same day Patient's condition: stable Indications: I have seen Cristina in clinic for symptoms of carpal tunnel syndrome. The numbness, tingling, and pain limited function. Clinical exam findings [with nerve conduction tests ]confirmed the diagnosis of carpal tunnel syndrome. Nonoperative measures such as bracing, time, activity modifications had been tried but disability and pain persisted. I discussed carpal tunnel release with the patient. I reviewed the risks of the procedure to include, but not limited to, bleeding, infection, pain, stiffness, incomplete release, damage to nerves or vessels, persistent numbness, recurrence. Despite these risks, the patient elected to proceed. I also discussed the procedure for de Quervain's tenosynovitis. I reviewed the risk of the procedure to include bleeding, infection, pain, stiffness, tendon instability, damage to the superficial radial nerve, and complete release. Despite these risks, the patient elected to proceed. Findings: There was tightened carpal tunnel. This was dilated and released successfully with the endoscopic with increased space within the tunnel. The antebrachial fascia was released proximally freeing the median nerve at the wrist. The first extensor compartment is quite tight. There was a subcompartment for the EPB tendon which was released. There was fraying of the APL tendon slip with notable synovitis. The synovitis was resected and the frayed area was debrided. Procedure Description: Cristina was greeted in the preoperative holding area where the correct side was identified and marked. The consent was reviewed with the patient and signed. The history and physical was updated. All questions were answered. She was taken back to the operating room. The patient was placed into the supine position on the operating room table with the right arm on an arm board. A nonsterile tourniquet was placed high onto the arm. All bony prominences were well padded. Prophylactic antibiotics in the form of Cefazolin were administered. The right arm was then prepped with Chloraprep and draped in a standard fashion with stockinette and extremity drape. A timeout to confirm correct identity, side and site, procedure, allergies, anesthesia, and medical concerns was performed. The surgical site was marked in the volar wrist creases in line with the radial border of the fourth ray. The incision site for the first extensor compartment release was also marked. These areas were anesthetized with approximately 6cc of 1% Lidocaine. The limb was then exsanguinated with an Esmarch. Starting with the carpal tunnel procedure, the skin was incised with a 15 blade, approximately 1cm. The skin only was cut and the deeper tissue was dissected bluntly with a tenotomy scissor, avoiding passing nerve and venous structures. The fascia was penetrated and opened bluntly. A two-prong skin hook was placed under this proximal fascial edge. A series of hamate finders were used to identify and dilate the carpal tunnel. Synovial elevator was used to free synovial attachments to the underside of the transverse carpal ligament. My thumb was kept in the palm to pinky the distal extent of the carpal tunnel and correctly position the hand. The Microaire endoscope was inserted without difficulty and without resistance. Excellent visualization showed horizontally running fibers of the transverse carpal ligament (TCL). The distal extent of the TCL was visualized and the end of the scope palpated with the thumb. The blade was elevated and withdrawn from distal to proximal. The TCL was split into two flaps. The endoscope was reinserted to confirm complete release and any remnant ligament was incised. The scope was withdrawn and the proximal aspect of the carpal tunnel was grossly inspected and appeared release with the median nerve visible. The antebrachial fascia at the level of the wrist was then freed from the overlying skin and then the underlying median nerve with blunt dissection. This was transected longitudinally for about 3cm proximal to the wrist incision. The wound was then irrigated with easy flow of irrigant distally and proximally. The incision was closed with a single 4-0 Nylon suture. Attention was then turned to the first extensor compartment release. A 2 cm incision was made longitudinally over the radial styloid. The skin was incised only. The deep tissue subcutaneous fat was dissected with a tenotomy scissors trying to protect bridge of the superficial radial nerve. Any branches that were identified were retracted out of the way. The first compartment extensor tendons were then identified. The distal aspect of the first compartment was noted and were released. This release was performed more on the dorsal side to prevent tendon subluxation. The entirety of the first extensor compartment was then released. The slips of the abductor pollicis longus tendon were inspected. They showed significant amount of synovitis as well as area of fraying of one of the slips of the APL tendon. The synovitis was dissected away from the tendons and from within the first extensor compartment. The frayed edges of the APL tendons that were debrided down. Traction on the tendon was also used to confirm appropriate extension of the thumb confirming the release of the appropriate tendon. The dorsal radial surface of the radius was once again inspected to make sure there is no other sub-compartments or other restrictions to tendon motion. The wound was then thoroughly irrigated. The deep tissue was closed with a 3-0 Vicryl. The skin was closed with a running subjective 4-0 Monocryl. The tourniquet is released without significant bleeding. The hand was dressed with Xeroform over both incisions. This was followed by 4 x 4's, Kerlex and MELODY wrap as a soft thumb spica splint. All counts were correct. Patient was transferred back to same day surgery area in stable condition.
== END 2024-05-18 16:27 | disposition home or self-care (01) ==
PROVIDERS: PCP Nurse Practitioner Family; Visit Provider Student in an Organized Health Care Education/Training Program
PROC: 01N54ZZ Release Median Nerve, Percutaneous Endoscopic Approach (ICD-10-PCS; CPT 29848; principal; 2024-05-18 15:15)
PROC: (CPT 25000; 2024-05-18 15:15)
DX: G56.01 Carpal tunnel syndrome, right upper limb (principal); M65.4 Radial styloid tenosynovitis [de Quervain]
CPT/HCPCS: 29848; 25000; J0690; J2001; J2004; J2704

== ENCOUNTER 2024-07-20 11:40 | Day surgery (SDC) | payer OTHER, SELFPAY ==
--- NOTE | 2024-07-20 07:16 | W.PM.DSUDISC ---
Date of service: 07/20/24 Time of Service: 07:20 Discharge Plan Disposition Patient Disposition: Home Condition: Good Discharge Details Reason For Visit: Left carpal tunnel syndrome Attending Provider: Yaron Jarrett Primary Care Provider: Ministerio Gardner Home Meds and New Rx's Prescriptions: New hydrocodone-acetaminophen 5-325 mg tablet 1 tab PO Q6H PRN (Reason: severe pain) Qty: 4 0RF Rx Instructions: Take one tablet up to every 6 hours as needed for severe postoperative pain Continued cholecalciferol (vitamin D3) 125 mcg (5,000 unit) capsule 125 mcg PO DAILY Qty: 90 4RF sertraline 50 mg tablet See Rx Instructions .ROUTE .COMPLEX Qty: 90 3RF Dose Instruction: TAKE ONE TABLET BY MOUTH EVERY DAY Rx Instructions: TAKE ONE TABLET BY MOUTH EVERY DAY alprazolam 0.5 mg tablet See Rx Instructions PO TID PRN (Reason: anxiety) Qty: 30 0RF Rx Instructions: 0.5-1 tab orally three times a day PRN; hydrochlorothiazide 25 mg tablet 25 mg PO QAM Qty: 90 3RF Centrum Silver Women 8 mg iron-400 mcg-50 mcg tablet 1 tab PO DAILY acetaminophen 500 mg tablet 1,000 mg PO TID Qty: 90 0RF Discharge Instructions Stand Alone Forms: Kolby Lewis Tunnel Lexie Activity:: Elevate Remove Dressings/Wound Care:: 48 hours Shower/Bathe:: 48 hours Diet:: As Tolerated Discharge Orders Discharge Orders: Discharge Order (Routine); Ordered 07/20/24 Ordered By: Skylar Lamb
[2024-07-20 11:54] VITALS: BP 117/76; PULSE 87; RESP 20; TEMP 36.5; O2SAT 97
[2024-07-20] MEDS: Acetaminophen 500 MG TAB 1000 MG PO (11:58)
[2024-07-20] MEDS: Lactated Ringers 500 ML 80 ML IV (12:05)
--- NOTE | 2024-07-20 12:09 | W.ANESPRE ---
General Info Date of Service Date Performed: 07/20/24 Height: 5 ft Weight: 104 kg Body Mass Index (BMI): 44.7 Surgical Procedure: Operation Date: 07/20/24 13:40 Proposed Procedure Side Surgeon p Wrist ECTR Left Yaron Jarrett MD Actual Procedure Side Surgeon p Wrist ECTR Left Yaron Jarrett MD Pre-Op Diagnosis Post-Op Diagnosis Left carpal tunnel syndrome Left carpal tunnel syndrome Meds Allergies and Home Medications Allergies Allergy/AdvReac Type Severity Reaction Status Date / Time Painter And Derivatives Allergy Intermediate Hives, Verified 07/20/24 11:51 Itchy/Runny eyes hair dye Allergy Severe Skin Rash Uncoded 07/20/24 11:51 olay age defining Allergy Mild Topical Uncoded 07/20/24 11:51 Irritation Animal Dander Allergy unknown Uncoded 07/20/24 11:51 Home Medication ?Medication ?Instructions ?Recorded cholecalciferol (vitamin D3) 125 125 mcg PO DAILY #90 caps 01/13/22 mcg (5,000 unit) capsule sertraline 50 mg tablet See Rx Instructions .Route 07/27/23 .COMPLEX #90 tabs alprazolam 0.5 mg tablet See Rx Instructions PO TID PRN 08/26/23 anxiety #30 tabs csczqfjc-qfnh-fzgd 8 mg-folic 400 1 tab PO DAILY 08/28/23 mcg-K 50 mcg-lutein 300 mcg tablet (Centrum Silver Women) hydrochlorothiazide 25 mg tablet 25 mg PO QAM #90 tabs 01/20/24 acetaminophen 500 mg tablet 1,000 mg (2 x 500 mg) PO TID #90 05/18/24 tabs hydrocodone 5 mg-acetaminophen 325 1 tab PO Q6H PRN severe pain #4 07/20/24 mg tablet tabs Current Visit Medications: Current Medications Generic Name Dose Route Start Last Admin Trade Name Freq PRN Reason Stop Dose Admin Acetaminophen 1,000 mg 07/20/24 06:00 07/20/24 11:58 Acetaminophen 500 Mg Tab PO 07/20/24 18:00 1,000 mg PREOP SURJIT Administration Acetaminophen 650 mg 07/20/24 07:15 Acetaminophen 325 Mg Tab PO 08/19/24 07:14 Q4H PRN PRN Cefazolin Sodium/Dextrose 2 gm in 50 mls @ 100 mls/hr 07/20/24 06:00 Ancef Duplex IVPB 07/20/24 18:00 PREOP SURJIT Ringer's Solution 500 mls @ 80 mls/hr 07/20/24 06:00 IV 08/18/24 23:59 INFUSION [facility] IV Miscellaneous Supplies 1 each 07/20/24 06:00 Iv Access IV 08/18/24 23:59 DIRECTED SURJIT Sodium Chloride 0 ml 07/20/24 06:00 Normal Saline Flush 10 Ml Syr IV 08/18/24 23:59 PRN PRN Sodium Chloride 0 ml 07/20/24 06:00 Normal Saline 10 Ml Vial IJ 08/18/24 23:59 DIRECTED PRN Sterile Water 0 ml 07/20/24 06:00 Water,Injection,Sterile 10 Ml Vial IJ 08/18/24 23:59 DIRECTED PRN PFSH Active Problems Active Problems: Problem Status Onset Code Left carpal tunnel syndrome Acute G56.02 De Quervain's tenosynovitis, right Acute M65.4 Bilateral wrist pain Acute M25.531, M25.532 Skin lesions Acute L98.9 Fatigue Acute R53.83 Screening for diabetes mellitus Acute Z13.1 Right ankle sprain Acute 07/15/22 S93.401A Anxiety Chronic F41.9 Essential hypertension Acute I10 Morbid obesity with BMI of 45.0-49.9, adult Acute E66.01, Z68.42 HPV (human papilloma virus) infection Chronic B97.7 Low back pain Chronic M54.5 Vitamin D deficiency Acute E55.9 Colon cancer screening Acute Z12.11 Smoker Chronic F17.200 Left shoulder pain Chronic M25.512 Medical History Medical History Scalp lesion Resolved 06/17. Fungal. Responded to Lamisil Tick bite COVID-19 07/2021, uri-resolved Left flank pain Fluid retention in legs Plantar fasciitis, right (01/20/18) Posterior tibial tendinitis, right leg (01/20/18) Surgical History Surgical History , Ectopic (~1987) Abdominal hysterectomy KATIE; B/L OOPHORECTOMY 1992 Cervix remains intact Cholecystectomy (~1992) Tobacco Smoking/Tobacco Use Status: Current every day Tobacco Type: cigarettes Smoking packs per day: 0.5 Passive smoking exposure: Yes Second hand exposure: Yes Alcohol Alcohol Intake: current Alcohol intake frequency: holidays/special occasions only Substance Use Substance use: Never Substance use type: does not use Details: alcohol: unknown Vital Signs and Lab Results Vital Signs Most Recent Vital Signs in EMR: Most Recent Vital Signs Temp Pulse Resp BP Pulse Ox 36.5 C 87 20 117/76 97 07/20/24 11:54 07/20/24 11:54 07/20/24 11:54 07/20/24 11:54 07/20/24 11:54 Lab Results Blood Type / Crossmatch: No Data to Display Complete Blood Count: No Data to Display Complete Metabolic Panel: No Data to Display Liver Function Panel: No Data to Display Coagulation Panel: No Data to Display Cardiac Panel: No Data to Display Arterial Blood Gas: No Data to Display Venous Blood Gas: No Data to Display Pancreas Panel: No Data to Display Thyroid Panel: No Data to Display Infectious Disease: No Data to Display Blood Cultures: No Data to Display Toxicology Panel: No Data to Display Anesthesia Assessment and Plan Anesthesia History Personal History: No History of Anesthesia Complications Family History: Family History Unknown Exercise Tolerance Exercise Tolerance: Metabolic Equivalents>4 Pertinent Negatives Pertinent Negatives: No Symptoms of GERD, No Major Cardiovascular Symptoms or Complaints, No Major Pulmonary Symptoms or Complaints and No History of CVA/TIA Cardiac & Pulmonary Exam Cardiac Exam: Normal S1/S2 Heart Sounds Pulmonary Exam: Clear Bilateral Breath Sounds Implantable Cardiac Device Does patient have a Pacemaker or an ICD?: No Airway Exam Known Difficult Airway: No Mallampati Class: 3 Mouth Opening: Narrow (< 3cm) Thyromental Distance: Less than 3 cm Neck Range of Motion: Full ROM Neck Circumference: Thick Teeth Condition: Removable Dentures/Plates Upper ASA Classification ASA Score: ASA 3 Emergency Case?: No NPO Status NPO Status: NPO Clears >2 hours, Solids >8 hours Anesthesia Plan Resuscitation Status: Full Code Anesthesia Technique: MAC Anesthesia Airway Planned: Natural Airway Pain Management: Surgeon and patient request nerve block Monitors Used: Standard Monitors
[2024-07-20 12:22] VITALS: BMI 44.7
[2024-07-20] MEDS: ceFAZolin 2 GM/50 ML BAG IVPB (12:25)
[2024-07-20] MEDS: Lidocaine 1% Multi-Dose W/EPI 1/100,000 50 ML VIAL (12:37)
[2024-07-20 12:50] VITALS: BP 99/62; PULSE 89; RESP 16; TEMP 36.1; O2SAT 93
--- NOTE | 2024-07-20 12:54 | W.ANESPOSTOP ---
Postoperative Evaluation Date, Time and Location Date Performed: 07/20/24 Time Performed: 12:54 Patient Location: Day Surgery Unit Vital Signs Most Recent Imported Vital Signs: Most Recent Vital Signs Temp Pulse Resp BP Pulse Ox 36.1 C L 89 16 99/62 L 93 07/20/24 12:50 07/20/24 12:50 07/20/24 12:50 07/20/24 12:50 07/20/24 12:50 Pain Score Most Recent Pain Score: Most Recent Pain Score Pain Level 0 07/20/24 12:50 Assessment Mental Status: Awake (Alert & Oriented to Patient Baseline) Airway and Respiratory Function: Patent airway with normal (patient baseline) respiratory exam Cardiovascular Function: Hemodynamically Stable Hydration Status: Adequately Hydrated Nausea & Vomiting: No Nausea or Vomiting Pain: Pain is tolerable per patient Peripheral Nerve Block: Patient did not receive a nerve block Teaching Patient Teaching: Discussed Safe Use of Pain Medication Given Recent Anesthesia
[2024-07-20 13:19] VITALS: BP 97/69; PULSE 87; RESP 16; TEMP 36.5; O2SAT 92
--- NOTE | 2024-07-21 12:11 | W.PM.OP ---
Date of service: 07/20/24 Time of Service: 12:30 Operative Note Operative Note DATE OF PROCEDURE: 07/21/24 PRE-OP DIAGNOSIS: Right Carpal Tunnel Syndrome POST-OP DIAGNOSIS: same PROCEDURE: Right Endoscopic Carpal Tunnel Release SURGEON: Yaron Jarrett ANESTHESIA TYPE: General:No Airway Refer to Anesthesia Record ESTIMATED BLOOD LOSS: 0 PATHOLOGY: none sent TOURNIQUET TIME: 4 COMPLICATIONS: None Patient was transported to: same day Patient's condition: stable Indications: I have seen Cristnia in clinic for symptoms of carpal tunnel syndrome. The numbness, tingling, and pain limited function. Clinical exam findings with nerve conduction tests confirmed the diagnosis of carpal tunnel syndrome. Nonoperative measures such as bracing, time, activity modifications had been tried but disability and pain persisted. I discussed carpal tunnel release with the patient. I reviewed the risks of the procedure to include, but not limited to, bleeding, infection, pain, stiffness, incomplete release, damage to nerves or vessels, persistent numbness, recurrence. Despite these risks, the patient elected to proceed. Findings: There was tightened carpal tunnel. This was dilated and released successfully with the endoscopic with increased space within the tunnel. The antebrachial fascia was released proximally freeing the median nerve at the wrist. Procedure Description: Cristina was greeted in the preoperative holding area where the correct side was identified and marked. The consent was reviewed with the patient and signed. The history and physical was updated. All questions were answered. She was taken back to the operating room. The patient was placed into the supine position on the operating room table with the right arm on an arm board. A nonsterile tourniquet was placed high onto the arm. All bony prominences were well padded. Prophylactic antibiotics in the form of Cefazolin were administered. The right arm was then prepped with Chloraprep and draped in a standard fashion with stockinette and extremity drape. A timeout to confirm correct identity, side and site, procedure, allergies, anesthesia, and medical concerns was performed. The surgical site was marked in the volar wrist creases in line with the radial border of the fourth ray. This area was anesthetized with approximately 6cc of 1% Lidocaine. The limb was then exsanguinated with an Esmarch. The skin was incised with a 15 blade, approximately 1cm. The skin only was cut and the deeper tissue was dissected bluntly with a tenotomy scissor, avoiding passing nerve and venous structures. The fascia was penetrated and opened bluntly. A two-prong skin hook was placed under this proximal fascial edge. A series of hamate finders were used to identify and dilate the carpal tunnel. Synovial elevator was used to free synovial attachments to the underside of the transverse carpal ligament. My thumb was kept in the palm to pinky the distal extent of the carpal tunnel and correctly position the hand. The Microaire endoscope was inserted without difficulty and without resistance. Excellent visualization showed horizontally running fibers of the transverse carpal ligament (TCL). The distal extent of the TCL was visualized and the end of the scope palpated with the thumb. The blade was elevated and withdrawn from distal to proximal. The TCL was split into two flaps. The endoscope was reinserted to confirm complete release and any remnant ligament was incised. The scope was withdrawn and the proximal aspect of the carpal tunnel was grossly inspected and appeared release with the median nerve visible. The antebrachial fascia at the level of the wrist was then freed from the overlying skin and then the underlying median nerve with blunt dissection. This was transected longitudinally for about 3cm proximal to the wrist incision. The wound was then irrigated with easy flow of irrigant distally and proximally. The incision was closed with a single 4-0 Nylon suture. The wound was dressed with Xeroform, Gauze, Kerlix and Adam. The tourniquet was deflated with the initial dressing and held with some pressure. Blood flow returned easily to all digits with capillary refill less than 2 seconds. The patient tolerated the procedure well and was returned to the Same Day Surgery area in a stable condition suffering no known complication.
== END 2024-07-20 13:17 | disposition home or self-care (01) ==
PROVIDERS: PCP Nurse Practitioner Family; Visit Provider Student in an Organized Health Care Education/Training Program
PROC: 01N54ZZ Release Median Nerve, Percutaneous Endoscopic Approach (ICD-10-PCS; CPT 29848; principal; 2024-07-20 13:30)
DX: G56.02 Carpal tunnel syndrome, left upper limb (principal); I10 Essential (primary) hypertension; E66.01 Morbid (severe) obesity due to excess calories
CPT/HCPCS: 29848; J0690; J1885; J2004; J2405; J2704

== ENCOUNTER 2024-11-23 11:50 | Day surgery (SDC) | payer BC, SELFPAY ==
[2024-11-23] VITALS (17 sets, daily range): BP systolic 98–142; BP diastolic 70–103; PULSE 75–90; RESP 15–28; TEMP 36–36.8; O2SAT 93–98; BMI 45.2
[2024-11-23] MEDS: Celecoxib 200 MG CAP 400 MG PO (12:30)
[2024-11-23] MEDS: Acetaminophen 500 MG TAB 1000 MG PO (12:30)
--- NOTE | 2024-11-23 12:41 | ANES.PREOP_ITS ---
General Info Date of Service Date Performed: 11/23/24 Height: 5 ft Weight: 105 kg Body Mass Index (BMI): 45.2 Surgical Procedure: Operation Date: 11/23/24 13:40 Proposed Procedure Side Surgeon p Wrist Dequervains Release Left Yaron Jarrett MD Meds Allergies and Home Medications Allergies Allergy/AdvReac Type Severity Reaction Status Date / Time [place] And Derivatives Allergy Intermediate Hives, Verified 11/23/24 12:16 Itchy/Runny eyes lisinopril AdvReac Intermediate Other (See Verified 11/23/24 12:16 Comment) hair dye Allergy Severe Skin Rash Uncoded 11/23/24 12:16 olay age defining Allergy Mild Topical Uncoded 11/23/24 12:16 Irritation Animal Dander Allergy unknown Uncoded 11/23/24 12:16 Home Medication ?Medication ?Instructions ?Recorded cholecalciferol (vitamin D3) 125 125 mcg PO DAILY #90 caps 01/13/22 mcg (5,000 unit) capsule sertraline 50 mg tablet See Rx Instructions .Route 07/27/23 .COMPLEX #90 tabs alprazolam 0.5 mg tablet See Rx Instructions PO TID PRN 08/26/23 anxiety #30 tabs zwletfie-dxil-aadg 8 mg-folic 400 1 tab PO DAILY 08/28/23 mcg-K 50 mcg-lutein 300 mcg tablet (Centrum Silver Women) hydrochlorothiazide 25 mg tablet 25 mg PO QAM #90 tabs 01/20/24 acetaminophen 500 mg tablet 1,000 mg (2 x 500 mg) PO TID #90 05/18/24 tabs calcium no.26 167 mg-magnesium 1 cap PO DAILY 11/22/24 no.15 83 mg-zinc 5 mg capsule Current Visit Medications: Current Medications Generic Name Dose Route Start Last Admin Trade Name Freq PRN Reason Stop Dose Admin Acetaminophen 1,000 mg 11/23/24 06:00 11/23/24 12:30 Acetaminophen 500 Mg Tab PO 11/23/24 23:59 1,000 mg PREOP SURJIT Administration Celecoxib 400 mg 11/23/24 06:00 11/23/24 12:30 Celecoxib 200 Mg Cap PO 11/23/24 23:59 400 mg PREOP SURJIT Administration Ringer's Solution 1,000 mls @ 80 mls/hr 11/23/24 06:00 IV 11/23/24 23:59 INFUSION SURJIT Cefazolin Sodium/Dextrose 2 gm in 50 mls @ 100 mls/hr 11/23/24 06:00 Ancef Duplex IVPB 11/23/24 23:59 PREOP SURJIT IV Miscellaneous Supplies 1 each 11/23/24 06:00 Iv Access IV 11/23/24 23:59 DIRECTED SURJIT Sodium Chloride 0 ml 11/23/24 06:00 Normal Saline Flush 10 Ml Syr IV 11/23/24 23:59 PRN PRN Sodium Chloride 0 ml 11/23/24 06:00 Normal Saline 10 Ml Vial IJ 11/23/24 23:59 DIRECTED PRN Sterile Water 0 ml 11/23/24 06:00 Water,Injection,Sterile 10 Ml Vial IJ 11/23/24 23:59 DIRECTED PRN PFSH Active Problems Active Problems: Problem Status Onset Code Lateral epicondylitis of elbow Acute M77.10 De Quervain's tenosynovitis Acute M65.4 Skin lesions Acute L98.9 Fatigue Acute R53.83 Screening for diabetes mellitus Acute Z13.1 Right ankle sprain Acute 07/15/22 S93.401A Anxiety Chronic F41.9 Essential hypertension Acute I10 Morbid obesity with BMI of 45.0-49.9, adult Acute E66.01, Z68.42 HPV (human papilloma virus) infection Chronic B97.7 Low back pain Chronic M54.5 Vitamin D deficiency Acute E55.9 Colon cancer screening Acute Z12.11 Smoker Chronic F17.200 Left shoulder pain Chronic M25.512 Medical History Medical History Scalp lesion Resolved 06/17. Fungal. Responded to Lamisil Tick bite COVID-19 07/2021, uri-resolved Left flank pain Fluid retention in legs Plantar fasciitis, right (01/20/18) Posterior tibial tendinitis, right leg (01/20/18) Surgical History Surgical History Left carpal tunnel syndrome s/p left ECTR DOS: 07/20/24 Right carpal tunnel syndrome S/P ECTR: 05/18/2024 De Quervain's tenosynovitis, right 40 mg Depo-medrol: 10/22/23 S/P Release: 05/18/2024 , Ectopic (~1987) Abdominal hysterectomy KATIE; B/L OOPHORECTOMY 1992 Cervix remains intact Cholecystectomy (~1992) Tobacco Smoking/Tobacco Use Status: Current every day Tobacco Type: cigarettes Smoking packs per day: 0.5 Passive smoking exposure: Yes Second hand exposure: Yes Alcohol Alcohol Intake: current Alcohol intake frequency: holidays/special occasions only Substance Use Substance use: Never Substance use type: does not use Details: alcohol: unknown Vital Signs and Lab Results Vital Signs Most Recent Vital Signs in EMR: Most Recent Vital Signs Temp Pulse Resp BP Pulse Ox 36.0 C L 86 18 142/71 H 98 11/23/24 12:23 11/23/24 12:23 11/23/24 12:23 11/23/24 12:23 11/23/24 12:23 Lab Results Blood Type / Crossmatch: No Data to Display Complete Blood Count: No Data to Display Complete Metabolic Panel: No Data to Display Liver Function Panel: No Data to Display Coagulation Panel: No Data to Display Cardiac Panel: No Data to Display Arterial Blood Gas: No Data to Display Venous Blood Gas: No Data to Display Pancreas Panel: No Data to Display Thyroid Panel: No Data to Display Infectious Disease: No Data to Display Blood Cultures: No Data to Display Toxicology Panel: No Data to Display Anesthesia Assessment and Plan Anesthesia History Personal History: No History of Anesthesia Complications Family History: Family History Unknown Exercise Tolerance Exercise Tolerance: Metabolic Equivalents>4 Pertinent Negatives Pertinent Negatives: No Symptoms of GERD, No Major Cardiovascular Symptoms or Complaints and No Major Pulmonary Symptoms or Complaints Cardiac & Pulmonary Exam Cardiac Exam: Normal S1/S2 Heart Sounds Pulmonary Exam: Clear Bilateral Breath Sounds Implantable Cardiac Device Does patient have a Pacemaker or an ICD?: No Airway Exam Known Difficult Airway: No Mallampati Class: 3 Mouth Opening: Narrow (< 3cm) Thyromental Distance: Less than 3 cm Neck Range of Motion: Full ROM Neck Circumference: Thick Teeth Condition: Removable Dentures/Plates Upper ASA Classification ASA Score: ASA 3 Emergency Case?: No NPO Status NPO Status: NPO Clears >2 hours, Solids >8 hours Anesthesia Plan Resuscitation Status: Full Code Anesthesia Technique: General Anesthesia Airway Planned: Natural Airway Monitors Used: Standard Monitors
[2024-11-23] MEDS: Lactated Ringers 1,000 ML 80 ML IV (12:45)
[2024-11-23] MEDS: ceFAZolin 2 GM/50 ML BAG IVPB (13:22)
--- NOTE | 2024-11-23 13:30 | W.PM.DSUDISC ---
Date of service: 11/23/24 Discharge Plan Disposition Patient Disposition: Home Condition: Good Discharge Details Reason For Visit: Noreen Modi's release Attending Provider: Yaron Jarrett Primary Care Provider: Ministerio Gardner Home Meds and New Rx's Prescriptions: New hydrocodone-acetaminophen 5-325 mg tablet 1 tab PO Q6H PRN (Reason: pain) Qty: 6 0RF acetaminophen 500 mg tablet 1,000 mg PO TID Qty: 90 0RF ibuprofen 600 mg tablet 600 mg PO TID PRN (Reason: pain) Qty: 90 0RF Continued cholecalciferol (vitamin D3) 125 mcg (5,000 unit) capsule 125 mcg PO DAILY Qty: 90 4RF sertraline 50 mg tablet See Rx Instructions .ROUTE .COMPLEX Qty: 90 3RF Dose Instruction: TAKE ONE TABLET BY MOUTH EVERY DAY Rx Instructions: TAKE ONE TABLET BY MOUTH EVERY DAY alprazolam 0.5 mg tablet See Rx Instructions PO TID PRN (Reason: anxiety) Qty: 30 0RF Rx Instructions: 0.5-1 tab orally three times a day PRN; hydrochlorothiazide 25 mg tablet 25 mg PO QAM Qty: 90 3RF Centrum Silver Women 8 mg iron-400 mcg-50 mcg tablet 1 tab PO DAILY calcium 26-magnesium 15-zinc 167 mg calcium- 83 mg-5 mg capsule 1 cap PO DAILY Discontinued acetaminophen 500 mg tablet 1,000 mg PO TID Qty: 90 0RF Discharge Instructions Additional Instructions: Dequedenis's Discharge Instructions Activity: You should keep the hand elevated as much as possible for the first few days. You may use the other fingers as tolerated but avoid trying to do too much too soon. You may perform light activities with the splint in place. Dressing/Cast: Your splint should stay in place at all times. Do NOT get it wet. You may loosen the MELODY wrap if you feel it is too tight and then rewrap more loosely. Medications: - You should take Tylenol and Ibuprofen for baseline pain control. - You have Hydrocodone for breakthrough pain. - You may apply ice over the thumb. Follow-up: 7-10 days Stand Alone Forms: Anesthesia Discharge Inst. Referrals: Yaron Jarrett MD [ [facility] STAFF PHYSICIAN] - 12/02/24 9:45 am (with ortho PA) Activity:: Elevate Remove Dressings/Wound Care:: Do Not Remove Shower/Bathe:: Cover Diet:: As Tolerated Discharge Orders Discharge Orders: Discharge Order (Routine); Ordered 11/23/24 Ordered By: Nate Peterson DS: Diagnosis Discharge Diagnosis (1) De Quervain's tenosynovitis, left: Status: Acute
[2024-11-23] MEDS: Lidocaine 1% Pres-Free 30 ML VIAL (13:40)
[2024-11-23] MEDS: Sodium Bicarbonate 50 MEQ/50 ML VIAL (13:50)
--- NOTE | 2024-11-23 15:29 | W.ANESPOSTOP ---
Postoperative Evaluation Date, Time and Location Date Performed: 11/23/24 Time Performed: 15:29 Patient Location: Day Surgery Unit Vital Signs Most Recent Imported Vital Signs: Most Recent Vital Signs Temp Pulse Resp BP Pulse Ox 36.6 C 76 17 98/73 L 94 11/23/24 14:42 11/23/24 14:42 11/23/24 14:42 11/23/24 14:42 11/23/24 14:42 Pain Score Most Recent Pain Score: Most Recent Pain Score Pain Level 0 11/23/24 14:42 Assessment Mental Status: Awake (Alert & Oriented to Patient Baseline) Airway and Respiratory Function: Patent airway with normal (patient baseline) respiratory exam Cardiovascular Function: Hemodynamically Stable Hydration Status: Adequately Hydrated Nausea & Vomiting: No Nausea or Vomiting Pain: Pt. Denies Any Pain Peripheral Nerve Block: Patient did not receive a nerve block
--- NOTE | 2024-11-23 17:35 | ROE_ITS ---
Operative Note Operative Note PRE-OP DIAGNOSIS: Left Dequervain's Tenosynovitis POST-OP DIAGNOSIS: same PROCEDURE: Left First Extensor Compartment Release SURGEON: Yaron Jarrett ANESTHESIA TYPE: General:No Airway Refer to Anesthesia Record ESTIMATED BLOOD LOSS: 0 PATHOLOGY: none sent TOURNIQUET TIME: 0 COMPLICATIONS: None Patient was transported to: same day Patient's condition: stable Indications: Cristina is a 59 year old female who has had symptoms of Dequervain's tenosynovitis. Nonoperative treatment options had been trialed. She had a previously successful release of the first extensor compartment on the right. Given their failure, I offered operative intervention. I reviewed the technical details of a first extensor compartment release. I reviewed the risk of the procedure to include bleeding, infection, pain, stiffness, tendon instability, damage to the superficial radial nerve, and complete release. Despite these risks, the patient elected to proceed. Findings: There was a tightened first excessive compartment. There was some notable synovitis but no subcompartments. Procedure Description: Cristina was greeted in the preoperative holding area. Name and surgical site were confirmed. The history and physical was completed. The consent was reviewed the patient and signed. Cristina was taken back to the operating room. The patient was placed in the supine position and monitored anesthesia care was initiated. The left was then prepped with ChloraPrep and draped in a standard fashion after a nonsterile tourniquet was placed high up onto the arm. Prophylactic antibiotics in the form of cefazolin were administered. A timeout was performed for safe surgery. The surgical site was drawn on the skin. The planned surgical field was anesthetized with 0.25% bupivacaine with epinephrine. The limb was exsanguinated and the tourniquet was inflated. However, she was reacting significantly to the tourniquet and it was thus deflated within 1 minute. A 2 cm incision was made longitudinally over the radial styloid. The skin was incised only. The deep tissue subcutaneous fat was dissected with a tenotomy scissors trying to protect bridge of the superficial radial nerve. Any branches that were identified were retracted out of the way. The first compartment e xtensor tendons were then identified. The distal aspect of the first compartment was noted and were released. This release was performed more on the dorsal side to prevent tendon subluxation. The entirety of the first extensor compartment was then released. The slips of the abductor pollicis longus tendon were inspected. They removed to confirm the appropriate motion of the thumb. The extensor pollicis brevis tendon was then identified. It was fully released. Traction on the tendon was also used to confirm appropriate extension of the thumb confirming the release of the appropriate tendon. The dorsal radial surface of the radius was once again inspected to make sure there is no other sub-compartments or other restrictions to tendon motion. There was some synovitis of the tendons which was resected. The wound was then thoroughly irrigated. The deep tissue was closed with a 3-0 Vicryl. The skin was closed with a running subjective 4-0 Monocryl. Skin glue was applied. The tourniquet is released without significant bleeding. The hand was dressed with 4 x 4's, Kerlex and MELODY wrap into a soft thumb spica splint. All counts were correct. Patient was transferred back to same day surgery area in stable condition. Date of Procedure: 11/23/24
== END 2024-11-23 15:32 | disposition home or self-care (01) ==
PROVIDERS: PCP Nurse Practitioner Family; Visit Provider Student in an Organized Health Care Education/Training Program
PROC: (CPT 25000; principal; 2024-11-23 13:30)
DX: M65.4 Radial styloid tenosynovitis [de Quervain] (principal); I10 Essential (primary) hypertension; E66.01 Morbid (severe) obesity due to excess calories; Z68.42 Body mass index [BMI] 45.0-49.9, adult
CPT/HCPCS: 25000; J0690; J1100; J1885; J2003; J2250; J2405; J2704